=== PATIENT | male | born 1940 | race Caucasian/White ===

== ENCOUNTER → 2020-05-29 12:19 | Outpatient (CLI) | payer BC, SELFPAY ==
[2020-05-29 20:49] LABS: COVID19 - ORCAS (NP or Nasal) Negative (Negative)
== END ==
PROVIDERS: Family Provider Family Medicine; PCP Internal Medicine; Visit Provider Physician Assistant
DX: Z20.822 Contact with and (suspected) exposure to COVID-19 (principal)
CPT/HCPCS: U0003

== ENCOUNTER 2020-09-15 13:55 | Emergency (ER) | payer BC, SELFPAY ==
[2020-09-15] VITALS (7 sets, daily range): BP systolic 161–184; BP diastolic 81–92; PULSE 64–96; RESP 16; TEMP 36.4; O2SAT 83–99; BMI 20.8
[2020-09-15 14:21] LABS: Add Manual Diff / Slide Review NO; Basophils Absolute Auto 100 /uL (0-100); Basophils Percent Auto 3.1 % (0-2); Eosinophils Absolute Auto 0 /uL (0-450); Eosinophils Percent Auto 1.6 % (2-4); Hematocrit 39.4 % (41-53); Hemoglobin 13.3 g/dL (13.5-17.5); Lymphocytes Absolute Auto 900 /uL (1100-4500); Mean Corpuscular HGB Conc 33.9 % (30-36); Mean Corpuscular Hemoglobin 34.2 PG (26-34); Mean Corpuscular Volume 100.8 fL (80-100); Monocytes Absolute Auto 600 /uL (0-900); Monocytes Percent Auto 19.7 % (3-14); Neutrophils Absolute Auto 1300 /uL (1500-7000); Neutrophils Percent Auto 44.6 % (50-75); Platelet Count 204 X10^3/uL (150-400); Red Blood Cell Count 3.91 X10^6/uL (4.5-5.9); Red Cell Distribution Width 13.1 % (11.6-14.8); White Blood Cell Count 2.8 X10^3/uL (4.5-11.0)
[2020-09-15 14:36] LABS: Alanine Aminotransferase 15 IU/L (<50); Albumin 4.3 g/dL (3.5-5.0); Albumin Globulin Ratio 0.8 (1.0-2.8); Alkaline Phosphatase 77 U/L (38-126); Aspartate Aminotransferase 49 IU/L (17-59); BUN Creatinine Ratio 25.4 (6-22); Bilirubin Total 1.3 mg/dL (0.2-1.3); Blood Urea Nitrogen 15 mg/dL (9-20); Calcium 9.2 mg/dL (8.4-10.2); Carbon Dioxide 26 mmol/L (22-32); Chloride 102 mmol/L (98-107); Estimated Glomerular Filt Rate > 60.0 mL/min (>60); Globulin 5.2 g/dL (1.7-4.1); Glucose 103 mg/dL (80-110); Lipase 25 U/L (23-300); Sodium 135 mmol/L (137-145); Total Protein 9.5 g/dL (6.3-8.2)
[2020-09-15 14:37] LABS: HEMOLYSIS 262 (0-50); Potassium 5.8 mmol/L (3.4-5.1)
--- NOTE | 2020-09-15 15:11 | ED.ABDPAIN ---
HPI - Abdominal Pain General Chief Complaint: Abdominal Pain Stated Complaint: right side abd pain Time Seen by Provider: 09/15/20 13:57 Source: patient Mode of arrival: Ambulatory History of Present Illness HPI narrative: 79M former smoker with a history of HTN and multiple myeloma presents with and the chief complaint of at least a few days of pain in the RUQ. He denies any injury and states it is worse when he lays flat so he has had trouble sleeping. He denies other palliation or provocation. Specifically he has no trouble eating or drinking and no N/V/D. He denies any injury. He does state he recently had a surgery for an inguinal hernia and has been having trouble moving his bowels. He denies any dysuria, frequency or urgency. He had seen his primary care doctor and had a rib series x-ray which was unremarkable Related Data Home Medications Medication Instructions Recorded Confirmed acyclovir 400 mg tablet 400 mg PO BID 09/12/20 09/12/20 amlodipine 5 mg tablet 5 mg PO DAILY 09/12/20 09/12/20 aspirin 81 mg tablet,delayed 81 mg PO BID tab 09/12/20 09/12/20 release cholecalciferol (vitamin D3) 25 25 mcg PO DAILY 09/12/20 09/12/20 mcg (1,000 unit) capsule cyanocobalamin (vitamin B-12) 1,000 mcg IM QWEEK ml 09/12/20 09/12/20 1,000 mcg/mL injection solution daratumumab 20 mg/mL intravenous IV 09/12/20 09/12/20 solution (Darzalex) pomalidomide 2 mg capsule 2 mg PO DAILY 09/12/20 09/12/20 Previous Rx's Medication Instructions Recorded hydrocodone 5 mg-acetaminophen 325 1 tab PO Q6H PRN #20 tab 09/13/20 mg tablet Allergies Allergy/AdvReac Type Severity Reaction Status Date / Time No Known Drug Allergies Allergy Verified 09/12/20 16:09 Review of Systems Review of Systems Narrative: GENERAL: Denies chills, fatigue, malaise, fever, sweats. HEENT: Denies sinus pain, ear pain, sore throat, difficulty swallowing, dizziness. RESPIRATORY: Denies dyspnea, cough, wheezing, hemoptysis, sputum. CARDIOVASCULAR: see HPI GASTROINTESTINAL: Denies nausea, vomiting, abdominal pain, diarrhea, constipation, melena. : Denies dysuria, frequency, incontinence, hematuria, urinary retention. MUSCULOSKELETAL: denies weakness, joint pain, or bony pain SKIN: Denies rash, skin lesions, or other NEUROLOGIC: Denies weakness, headache, numbness, change in speech, confusion, seizures, incoordination. PSYCHIATRIC: No concerning psychosocial issues. 12 point review of systems is negative except for those stated above Patient History Social History Smoking Status: Former smoker Smoking Status: Former smoker Substance Use Type: does not use Exam Narrative Exam Narrative: GENERAL: [79] year old patient appears stated age. Well-developed patient, in mild distress. HEAD: Atraumatic. Normocephalic. EYES: Pupils equal round and reactive. Extraocular motions intact. No scleral icterus. No injection or drainage. ENT: Nose without bleeding, purulent drainage. Throat without erythema, tonsillar hypertrophy or exudate. Airway patent. NECK: Trachea midline. Non tender CARDIOVASCULAR: Regular rate and rhythm without murmurs, gallops, or rubs. Small, pinpoint location of pain on right side inferior ribs. No swelling, no erythema no rash, crepitance or subcutaneous emphysema noted. No pain once to slide and in fingers off of rib into abdomen RESPIRATORY: Clear to auscultation. Breath sounds equal bilaterally. No wheezes, rales, or rhonchi. GASTROINTESTINAL: Abdomen soft, non-tender, nondistended. EXTREMITIES: No edema or joint tenderness. BACK: Nontender without deformity or crepitance. No flank tenderness. NEURO: AOx3. SKIN: No rash or erythema of visible areas Initial Vital Signs Initial Vital Signs: Vital Signs Temperature 97.6 F 09/15/20 14:05 Pulse Rate 96 H 09/15/20 14:05 Respiratory Rate 16 09/15/20 14:05 Blood Pressure 169/81 H 09/15/20 14:05 Pulse Oximetry 98 09/15/20 14:05 Course Orders Ordered: Discontinued Medications Fentanyl (Fentanyl 100 Mcg/2 Ml Inj) 50 mcg IV NOW ONE Stop: 09/15/20 16:20 Last Admin: 09/15/20 16:28 Dose: 50 mcg Documented by: JAYA Vital Signs Vital signs: Vital Signs - 8 hr 09/15/20 14:05 09/15/20 16:03 09/15/20 16:29 Temperature 97.6 F Pulse Rate 96 H 64 66 Respiratory Rate 16 Blood Pressure 169/81 H Pulse Oximetry 98 99 98 09/15/20 16:30 Temperature Pulse Rate Respiratory Rate Blood Pressure 174/87 H Pulse Oximetry MDM - Abdominal Pain Lab Data Result diagrams: 09/15/20 14:14 09/15/20 14:14 Labs: Lab Results 09/15/20 09/15/20 Range/Units 14:14 14:14 WBC 2.8 L (4.5-11.0) X10^3/uL RBC 3.91 L (4.5-5.9) X10^6/uL Hgb 13.3 L (13.5-17.5) g/dL Hct 39.4 L (41-53) % MCV 100.8 H (80-100) fL MCH 34.2 H (26-34) PG MCHC 33.9 (30-36) % RDW 13.1 (11.6-14.8) % Plt Count 204 (150-400) X10^3/uL Neut % (Auto) 44.6 L (50-75) % Lymph % (Auto) 31.0 (25-40) % [place] % (Auto) 19.7 H (3-14) % Eos % (Auto) 1.6 L (2-4) % Baso % (Auto) 3.1 H (0-2) % Neut # (Auto) 1300 L (1258-7334) /uL Lymph # (Auto) 900 L (0811-1841) /uL [place] # (Auto) 600 (0-900) /uL Eos # (Auto) 0 (0-450) /uL Baso # (Auto) 100 (0-100) /uL Sodium 135 L (137-145) mmol/L Potassium 5.8 H (3.4-5.1) mmol/L Chloride 102 (98-107) mmol/L Carbon Dioxide 26 (22-32) mmol/L BUN 15 (9-20) mg/dL Creatinine 0.59 L (0.66-1.25) mg/dL Estimated GFR > 60.0 (>60) mL/min BUN/Creatinine Ratio 25.4 H (6-22) Glucose 103 (80-110) mg/dL Calcium 9.2 (8.4-10.2) mg/dL Total Bilirubin 1.3 (0.2-1.3) mg/dL AST 49 (17-59) IU/L ALT 15 (<50) IU/L Alkaline Phosphatase 77 (38-126) U/L Total Protein 9.5 H (6.3-8.2) g/dL Albumin 4.3 (3.5-5.0) g/dL Globulin 5.2 H (1.7-4.1) g/dL Albumin/Globulin Ratio 0.8 L (1.0-2.8) Lipase 25 (23-300) U/L Imaging Data CT scan - abdomen/pelvis: Radiologist's Impression: [address] [id number] Scan ReportSigned Patient: Aime [place] MMR#: [id number]: 2Acct:[id number]/Sex: 79 / MDate of Service: 09/15/20Loc: EDAccession Number: [id number] Procedure: CT abdomen pelvis w con Ordering Provider: Jose Luis Cole D.O. PROCEDURE: CT ABDOMEN PELVIS W CON INDICATIONS: R sided abdominal pain TECHNIQUE: After the administration of intravenous contrast, axial sections acquired from the lung bases to the pubic symphysis. Coronal and sagittal reformats were performed. For radiation dose reduction, the following was used: automated exposure control, adjustment of mA and/or kV according to patient size. COMPARISON: None. FINDINGS: Image quality: Excellent. Lung bases: Elevated left hemidiaphragm/eventration of the left hemidiaphragm. Minimal right basilar atelectasis. Heart: No significant findings. ABDOMEN: Liver: Unremarkable. Gallbladder: Unremarkable Biliary ducts: Unremarkable. Pancreas: Unremarkable. Spleen: Unremarkable. Adrenal Glands: Unremarkable. Kidneys and Ureters: Unremarkable. Stomach and Bowel: There is a large amount of colonic fecal debris. The colon is redundant. There is a large amount of fecal debris present in the right abdomen. Peritoneum: No abnormal intraperitoneal fluid. No free air. Ventral Wall: No hernias. Abdominal Nodes: No retroperitoneal or mesenteric adenopathy by size criteria. Vessels: Aorta and inferior vena cava are normal in size. PELVIS: Pelvic Organs: Unremarkable. Bladder: Unremarkable. Prostate is enlarged. Pelvic Nodes: No enlarged lymph nodes. Miscellaneous: Small fat containing left inguinal hernia. Bones: Scoliotic curvature. Old inferior endplate L2 compression. IMPRESSION: Redundant colon with large fecal load and large amount of fecal debris in the right abdomen. No evidence of acute abdominal process. Dictated by: Adan Casarez M.D. on 09/15/2020 at 16:55 Approved by: Adan Casarez M.D. on 09/15/2020 at 16:59 MDM Narrative Medical decision making narrative: Multiple diagnoses considered including liver, gallbladder and pancreas, however there is no reproducible pain of the abdomen, labs are reassuring and ultrasound has no significant findings. Rib fracture or pleural effusion considered but thought unlikely given lack of findings on imaging. Bowel obstruction or other abdominal findings considered but thought unlikely given such a benign abdominal exam and lack of findings on imaging. I did discuss the findings of large stool burden and possbility of it contributing, but that it wasn't clearly the diagnosis. Return precautions given and questions answered to their apparent satisfaction. Discharge Plan Departure Patient Disposition: Home Clinical Impression: Rib pain on right side Instructions: DI for Abdominal Pain-Adult Activity Restrictions/Additional Instructions: *You have been diagnosed with [ abdominal pain likely due to constipation ] *What to do: *Take over the counter medications as directed: 1. Metamucil - is a bulk forming laxative and adds fiber 2. Colace - softens your stool 3. Dulcolax suppository - stimulates your bowels *Follow up with your primary care provider in 2-3 days, call for appointment *Return to ER if you should have any new, worsening or concerning symptoms *Drink plenty of water and eat foods high in fiber *Stay as active as you can as this helps move your bowels as well Prescriptions: No Action hydrocodone-acetaminophen 5-325 mg tablet 1 tab PO Q6H PRN (Reason: pain, severe) Qty: 20 RF: 0 pomalidomide 2 mg capsule 2 mg PO DAILY RF: 0 acyclovir 400 mg tablet 400 mg PO BID RF: 0 cyanocobalamin (vitamin B-12) 1,000 mcg/mL solution 1,000 mcg IM QWEEK RF: 0 cholecalciferol (vitamin D3) 25 mcg (1,000 unit) capsule 25 mcg PO DAILY RF: 0 aspirin 81 mg tablet,delayed release (DR/EC) 81 mg PO BID RF: 0 amlodipine 5 mg tablet 5 mg PO DAILY RF: 0 Darzalex 20 mg/mL solution IV RF: 0 Referrals: Cecile Kinney MD [Primary Care Provider] -
--- NOTE | 2020-09-15 15:28 | DI.US.S_ITS ---
PROCEDURE: US ABDOMEN LIMITED INDICATIONS: RIGHT UPPER QUADRANT PAIN TECHNIQUE: Real-time focused scanning was performed of the abdomen, with image documentation. COMPARISON: None. FINDINGS: The liver measures 14.2 cm. There is a normal echotexture. Gallbladder is normal with no stones. No wall thickening or pericholecystic fluid. The bile duct measures 9.2 mm. The pancreas is atrophic and lobular. No mass identified. IMPRESSION: Dilated common bile duct with no gallstones or evidence of cholecystitis. This is nonspecific and could be related to patient age versus a common bile duct stone. Dictated by: Lázaro Arora M.D. on 09/15/2020 at 16:20 Approved by: Lázaro Arora M.D. on 09/15/2020 at 16:24
--- NOTE | 2020-09-15 16:20 | DI.CT.S_ITS ---
PROCEDURE: CT ABDOMEN PELVIS W CON INDICATIONS: R sided abdominal pain TECHNIQUE: After the administration of intravenous contrast, axial sections acquired from the lung bases to the pubic symphysis. Coronal and sagittal reformats were performed. For radiation dose reduction, the following was used: automated exposure control, adjustment of mA and/or kV according to patient size. COMPARISON: None. FINDINGS: Image quality: Excellent. Lung bases: Elevated left hemidiaphragm/eventration of the left hemidiaphragm. Minimal right basilar atelectasis. Heart: No significant findings. ABDOMEN: Liver: Unremarkable. Gallbladder: Unremarkable Biliary ducts: Unremarkable. Pancreas: Unremarkable. Spleen: Unremarkable. Adrenal Glands: Unremarkable. Kidneys and Ureters: Unremarkable. Stomach and Bowel: There is a large amount of colonic fecal debris. The colon is redundant. There is a large amount of fecal debris present in the right abdomen. Peritoneum: No abnormal intraperitoneal fluid. No free air. Ventral Wall: No hernias. Abdominal Nodes: No retroperitoneal or mesenteric adenopathy by size criteria. Vessels: Aorta and inferior vena cava are normal in size. PELVIS: Pelvic Organs: Unremarkable. Bladder: Unremarkable. Prostate is enlarged. Pelvic Nodes: No enlarged lymph nodes. Miscellaneous: Small fat containing left inguinal hernia. Bones: Scoliotic curvature. Old inferior endplate L2 compression. IMPRESSION: Redundant colon with large fecal load and large amount of fecal debris in the right abdomen. No evidence of acute abdominal process. Dictated by: Adan Casarez M.D. on 09/15/2020 at 16:55 Approved by: Adan Casarez M.D. on 09/15/2020 at 16:59
[2020-09-15] MEDS: fentaNYL 100 MCG/2 ML INJ 50 MCG IV (16:28)
== END 2020-09-15 17:24 | disposition home or self-care (01) ==
PROVIDERS: Emergency Provider Emergency Medicine; Family Provider Family Medicine; PCP Family Medicine
DX: R07.81 Pleurodynia (principal); R10.11 Right upper quadrant pain
CPT/HCPCS: 36415; 74177; 76705; 80053; 83690; 85025; 93005; 96374; 99284; J3010; Q9967

== ENCOUNTER → 2021-08-09 09:34 | Outpatient (CLI) | payer BC, SELFPAY ==
[2021-08-09 19:19] LABS: Hematocrit 33.7 % (41-53); Hemoglobin 11.2 g/dL (13.5-17.5); Mean Corpuscular HGB Conc 33.2 % (30-36); Mean Corpuscular Hemoglobin 30.6 PG (26-34); Mean Corpuscular Volume 92.3 fL (80-100); Platelet Count 161 X10^3/uL (150-400); Red Blood Cell Count 3.65 X10^6/uL (4.5-5.9)
[2021-08-09 19:21] LABS: Add Manual Diff / Slide Review YES
[2021-08-09 19:28] LABS: Alanine Aminotransferase 17 IU/L (<50); Albumin 3.7 g/dL (3.5-5.0); Alkaline Phosphatase 70 U/L (38-126); Aspartate Aminotransferase 33 IU/L (17-59); BUN Creatinine Ratio 26.2 (6-22); Bilirubin Total 0.8 mg/dL (0.2-1.3); Blood Urea Nitrogen 16 mg/dL (9-20); Calcium 8.9 mg/dL (8.4-10.2); Carbon Dioxide 31 mmol/L (22-32); Chloride 99 mmol/L (98-107); Estimated Glomerular Filt Rate > 60 mL/min (>60); Globulin 3.6 g/dL (1.7-4.1); Glucose 105 mg/dL (80-110); HEMOLYSIS 16 (0-50); Sodium 136 mmol/L (137-145); Total Protein 7.3 g/dL (6.3-8.2)
[2021-08-09 19:40] LABS: Anisocytosis 1+; Neutrophils Absolute Manual 960 /uL (3000-5900); Poikilocytosis 1+; Total Cells Counted 100
== END ==
PROVIDERS: Family Provider Family Medicine; PCP Internal Medicine Hematology & Oncology; Visit Provider Internal Medicine Hematology & Oncology
DX: C90.00 Multiple myeloma not having achieved remission (principal)
CPT/HCPCS: 80053; 85007; 85025

== ENCOUNTER → 2021-11-02 14:59 | Outpatient (CLI) | payer BC, SELFPAY | PROVIDERS: Family Provider Family Medicine; PCP Family Medicine; Referring Provider Physician Assistant; Visit Provider Physician Assistant | DX: C80.1 Malignant (primary) neoplasm, unspecified (principal) | CPT/HCPCS: 36415; 82378 ==

== ENCOUNTER → 2021-11-23 08:44 | Outpatient (CLI) | payer BC, SELFPAY ==
[2021-11-23 09:55] LABS: Hematocrit 28.5 % (41-53); Hemoglobin 9.7 g/dL (13.5-17.5); Mean Corpuscular HGB Conc 34.1 % (30-36); Mean Corpuscular Hemoglobin 35.7 PG (26-34); Mean Corpuscular Volume 104.7 fL (80-100); Platelet Count 86 X10^3/uL (150-400); Red Blood Cell Count 2.72 X10^6/uL (4.5-5.9)
[2021-11-23 10:09] LABS: Add Manual Diff / Slide Review YES; White Blood Cell Count 1.7 X10^3/uL (4.5-11.0)
[2021-11-23 10:30] LABS: Hypochromasia 1+; Macrocytosis 1+; Neutrophils Absolute Manual 1020 /uL (3000-5900); Total Cells Counted 50
== END ==
PROVIDERS: Family Provider Family Medicine; PCP Family Medicine; Referring Provider Physician Assistant; Visit Provider Physician Assistant
DX: C90.00 Multiple myeloma not having achieved remission (principal)
CPT/HCPCS: 36415; 85007; 85025

== ENCOUNTER 2021-12-09 13:57 | Observation (INO) | payer BC, SELFPAY ==
[2021-12-09] VITALS (14 sets, daily range): BP systolic 111–133; BP diastolic 60–76; PULSE 63–81; RESP 18–47; TEMP 37–37.7; O2SAT 91–100; BMI 17.8
--- NOTE | 2021-12-09 14:13 | DI.CT.S_ITS ---
PROCEDURE: CT CERVICAL SPINE WO CON INDICATIONS: fall with head injury TECHNIQUE: Noncontrast 3 mm thick sections acquired from the skull base to the T4 level. Sagittal and coronal reformats were then constructed. For radiation dose reduction, the following was used: automated exposure control, adjustment of mA and/or kV according to patient size. COMPARISON: [facility], CT, CT HEAD/BRAIN WO CON, 12/09/2021, 14:41. FINDINGS: Image quality: Fair. Bones: No fractures or dislocations. Moderate to severe degenerative change in the cervical spine at C5-C6 and C6-C7. Sclerotic focus at the left C1 transverse process. Visualized superior ribs are intact. T4 and T6 compression fractures. Soft tissues: Prevertebral soft tissues are normal in thickness. Carotid bulb atherosclerotic plaques. No paravertebral hematomas. No apical pneumothoraces. Subcentimeter thyroid nodules. IMPRESSION: No acute osseous abnormality in the cervical spine. 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 T4 and T6 compression fractures. Age indeterminate but appear chronic. Dictated by: Ruben Rosales M.D. on 12/09/2021 at 14:21 Approved by: Ruben Rosales M.D. on 12/09/2021 at 14:25
--- NOTE | 2021-12-09 14:13 | DI.CT.S_ITS ---
PROCEDURE: CT HEAD/BRAIN WO CON INDICATIONS: fall with head injury TECHNIQUE: Noncontrast 4.5 mm thick angled axial sections acquired from the foramen magnum to the vertex, with coronal and sagittal reformats. For radiation dose reduction, the following was used: automated exposure control, adjustment of mA and/or kV according to patient size. COMPARISON: None. FINDINGS: Image quality: Excellent. CSF spaces: Basal cisterns are patent. No extra-axial fluid collections. Large area of encephalomalacia at the left cerebral hemisphere and/or ex vacuole dilatation of the left lateral ventricle. 3rd and 4th ventricles are normal. Brain: No midline shift. No intracranial masses or hemorrhage. Periventricular hypodensity consistent with chronic microvascular ischemic change. Age-related parenchymal loss. Skull and face: Calvarium and visualized facial bones are intact, without suspicious lesions. Sinuses: Visualized sinuses and mastoids are clear. IMPRESSION: 1. No acute intracranial hemorrhage. 2. Large area of encephalomalacia at the left cerebral hemisphere and/or ex vacuole dilatation of the left lateral ventricle. 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 Dictated by: Ruben Rosales M.D. on 12/09/2021 at 14:15 Approved by: Ruben Rosales M.D. on 12/09/2021 at 14:19
--- NOTE | 2021-12-09 14:27 | DI.RAD.S_ITS ---
PROCEDURE: XR SHOULDER RT MIN 2V INDICATIONS: fall TECHNIQUE: 3 views of the shoulder were acquired. COMPARISON: [facility] ([place]), CR, XR RIBS RT MIN 3V W CXR 1V, 09/12/2020, 16:33. [facility], CR, SHOULDER MINIMUM 2 VIEW LEFT, 08/05/2010, 19:17. FINDINGS: Bones: Distal clavicle fracture. Mild displacement. The acromioclavicular joint interval does not appear widened. There are several right upper rib fractures which appear chronic. Fractures were seen on radiograph 09/12/2020. No dislocation of the glenohumeral joint. There is moderate degenerative change at the GH joint. Soft tissues: No suspicious soft tissue calcifications. IMPRESSION: Right distal clavicle fracture. Likely acute. Right sided rib fractures. Favor chronic etiology. Dictated by: Ruben Rosales M.D. on 12/09/2021 at 14:31 Approved by: Ruben Rosales M.D. on 12/09/2021 at 14:34
--- NOTE | 2021-12-09 14:52 | ED.SOB ---
HPI - SOB/Dyspnea <Jose Luis Cole, DO - Last Filed: 12/10/21 06:16> General Chief Complaint: Trauma Stated Complaint: fell onto steps hit head blood thinners Time Seen by Provider: 12/09/21 14:13 Source: patient and family Mode of arrival: Wheelchair History of Present Illness HPI Narrative: 81-year-old male former smoker with history of DVTs on Xarelto presents with family in the chief complaint of a mechanical fall in which he tripped down 1 stair landing on his right side. He did strike his head but did not have any loss of consciousness. He has no nausea, vomiting, blurred vision or trouble with speech. He denies any obvious midline neck pain. He has no shortness of breath or cough. As stated he denies nausea, vomiting or abdominal pain. He does have significant right shoulder and right lateral rib pain. Related Data Home Medications Medication Instructions Recorded Confirmed acyclovir 400 mg tablet 400 mg PO BID 09/12/20 12/09/21 cyanocobalamin (vitamin B-12) 1,000 mcg IM QMONTH 09/12/20 12/09/21 1,000 mcg/mL injection solution acetaminophen 500 mg tablet 1,000 mg PO BID 12/09/21 12/09/21 cetirizine 10 mg tablet (Zyrtec) 10 mg PO BEDTIME 12/09/21 12/09/21 cyclophosphamide 50 mg capsule 500 mg PO WEEKLY 12/09/21 12/09/21 furosemide 20 mg tablet 20 mg PO DAILY 12/09/21 12/09/21 ipratropium bromide 17 34 mcg inhalation Q4HR PRN 12/09/21 12/09/21 mcg/actuation HFA aerosol inhaler Shortness Of Breath Or Wheezing (Atrovent HFA) lenalidomide 15 mg capsule 15 mg PO DAILY 12/09/21 12/09/21 (Revlimid) metoprolol succinate 25 mg 25 mg PO DAILY 12/09/21 12/09/21 tablet,extended release 24 hr mirabegron 25 mg tablet,extended 25 mg PO DAILY 12/09/21 12/09/21 release 24 hr (Myrbetriq) morphine 30 mg tablet,extended 30 mg PO QAM 12/09/21 12/09/21 release morphine 30 mg tablet,extended 60 mg PO BEDTIME 12/09/21 12/09/21 release potassium chloride 10 mEq 20 meq PO DAILY 12/09/21 12/09/21 tablet,extended release(part/cryst) rivaroxaban 20 mg tablet (Xarelto) 20 mg PO BEDTIME 12/09/21 12/09/21 sennosides 8.6 mg tablet (senna) 25.8 mg PO BID 12/09/21 12/09/21 tamsulosin 0.4 mg capsule 0.4 mg PO DAILY 12/09/21 12/09/21 Previous Rx's Medication Instructions Recorded oxycodone 10 mg tablet 10 mg PO Q3H PRN Pain, Severe 12/10/21 (5-10) #12 tabs Allergies Allergy/AdvReac Type Severity Reaction Status Date / Time No Known Drug Allergies Allergy Verified 09/12/20 16:09 Review of Systems <Jose Luis Cole DO - Last Filed: 12/10/21 06:16> Review of Systems Narrative: GENERAL: Denies chills, fatigue, malaise, fever, sweats. HEENT: Denies sinus pain, ear pain, sore throat, difficulty swallowing, dizziness. RESPIRATORY: Denies dyspnea, cough, wheezing, hemoptysis, sputum. CARDIOVASCULAR: Denies chest pain, palpitations, orthopnea, edema, GASTROINTESTINAL: Denies nausea, vomiting, abdominal pain, diarrhea, constipation, melena. : Denies dysuria, frequency, incontinence, hematuria, urinary retention. MUSCULOSKELETAL: See HPI SKIN: Denies rash, skin lesions, or other NEUROLOGIC: Denies weakness, headache, numbness, change in speech, confusion, seizures, incoordination. PSYCHIATRIC: No concerning psychosocial issues. 12 point review of systems is negative except for those stated above Patient History <Jose Luis Cole DO - Last Filed: 12/10/21 06:16> Medical History (Updated 12/10/21 @ 00:23 by FREEDOM Boateng) BPH (benign prostatic hyperplasia) Chronic anticoagulation Heart failure with preserved ejection fraction History of DVT (deep vein thrombosis) History of pulmonary embolus (PE) Osteoporosis Overactive bladder Palliative care patient Paralysis, diaphragm Unstable gait Weakness of right side of body Surgical History (Updated 12/10/21 @ 00:10 by FREEDOM Boateng) History of back surgery History of hernia repair Family History Mother Cancer Father Blood disorder Social History household members: spouse Smoking Status: Former smoker alcohol intake: never Smoking Status: Former smoker Substance Use Type: does not use Exam <Jose Luis Cole DO - Last Filed: 12/10/21 06:16> Narrative Exam Narrative: GENERAL: [81] year old patient appears stated age. Well-developed patient, in mild distress. GCS 15 HEAD: Superficial abrasion right cheek, no underlying pain, no bleeding. No need for sutures. EYES: Pupils equal round and reactive. Extraocular motions intact. No scleral icterus. No injection or drainage. ENT: Nose without bleeding, purulent drainage. Throat without erythema, tonsillar hypertrophy or exudate. Airway patent. NECK: Trachea midline. Non tender CARDIOVASCULAR: Regular rate and rhythm without murmurs, gallops, or rubs. Lateral rib pain RESPIRATORY: Clear to auscultation. Breath sounds equal bilaterally. No wheezes, rales, or rhonchi. GASTROINTESTINAL: Abdomen soft, non-tender, nondistended. EXTREMITIES: Right shoulder pain without obvious deformity, painful on palpation and range of motion. No humerus, elbow or wrist pain, closed, isolated and neurovascularly intact BACK: Nontender without deformity or crepitance. No flank tenderness. NEURO: AOx3. SKIN: No rash or erythema of visible areas Initial Vital Signs Initial Vital Signs: Vital Signs Temperature 98.6 F 12/09/21 14:18 Pulse Rate 67 12/09/21 14:18 Respiratory Rate 18 12/09/21 14:18 Blood Pressure 112/68 12/09/21 14:18 Pulse Oximetry 97 12/09/21 14:18 Oxygen Delivery Method 12/09/21 14:18 <Denia Ruiz DO - Last Filed: 12/12/21 10:10> Initial Vital Signs Initial Vital Signs: Vital Signs Temperature 98.6 F 12/09/21 14:18 Pulse Rate 67 12/09/21 14:18 Respiratory Rate 18 12/09/21 14:18 Blood Pressure 112/68 12/09/21 14:18 Pulse Oximetry 97 12/09/21 14:18 Oxygen Delivery Method 12/09/21 14:18 Course <Jose Luis Cole DO - Last Filed: 12/10/21 06:16> Orders Ordered: Discontinued Medications Acetaminophen (Acetaminophen 325 Mg Tablet) 650 mg PO Q6H PRN PRN Reason: Fever/Mild Pain (1-10) Last Admin: 12/10/21 11:54 Dose: 650 mg Documented By: Admin: 12/09/21 21:31 Dose: 650 mg Documented By: Acyclovir (Acyclovir 400 Mg Tablet) 400 mg PO BID [facility] Last Admin: 12/10/21 08:23 Dose: 400 mg Documented By: ASHLEY Amlodipine Besylate (Amlodipine 5 Mg Tablet) 5 mg PO DAILY [facility] Last Admin: 12/10/21 08:57 Dose: Not Given Documented By: ASHLEY Bacitracin (Bacitracin Oint 0.9 Gm Pckt) 1 applic TOP NOW ONE Stop: 12/09/21 15:37 Last Admin: 12/09/21 16:06 Dose: 1 applic Documented By: WILL Diclofenac Sodium (Diclofenac 1% Gel 100 Gm) 1 applic TOP QID PRN PRN Reason: Pain, Mild (1-10) Furosemide (Furosemide 20 Mg Tablet) 20 mg PO DAILY [facility] Last Admin: 12/10/21 08:23 Dose: 20 mg Documented By: ASHLEY Sodium Chloride (Normal Saline 0.9%) 1,000 mls @ 60 mls/hr IV CONT [facility] Last Admin: 12/09/21 21:11 Dose: 60 mls/hr Documented By: Ipratropium [place] (Ipratropium 0.5 Mg/2.5 Ml Neb) 0.5 mg INH Q4H PRN PRN Reason: Shortness Of Breath Or Wheezing Lidocaine (Lidocaine Patch 1 Each Adh..Patch) 1 each TOP DAILY PRN PRN Reason: Pain, Moderate (1-10) Last Admin: 12/10/21 01:02 Dose: 1 each Documented By: AM Metoprolol Succinate (Metoprolol Er 25 Mg Tablet) 25 mg PO DAILY [facility] Last Admin: 12/10/21 08:23 Dose: 25 mg Documented By: ASHLEY Morphine Sulfate (Morphine Er 30 Mg Tablet) 60 mg PO BEDTIME [facility] Morphine Sulfate (Morphine Er 30 Mg Tablet) 30 mg PO DAILY [facility] Last Admin: 12/10/21 08:22 Dose: 30 mg Documented By: ASHLEY Naloxone HCl (Naloxone 0.4 Mg/Ml Vial) 0.2 mg IV Q2MIN PRN PRN Reason: Opiate Reversal Non-Formulary Medication (Pomalidomide) 2 mg PO DAILY [facility] Cyclophosphamide 50 (Mg Capsule) 500 mg PO Mo@0900 [facility] Last Admin: 12/10/21 08:27 Dose: 500 mg Documented By: ASHLEY Lenalidomide [ Revlimid] 15 Mg Capsule 15 mg PO DAILY [facility] Last Admin: 12/10/21 08:26 Dose: 15 mg Documented By: ASHLEY Oxycodone HCl (Oxycodone Ir 10 Mg Tablet) 10 mg PO Q3H PRN PRN Reason: Pain, Severe (5-10) Last Admin: 12/10/21 16:12 Dose: 10 mg Documented By: Admin: 12/10/21 11:48 Dose: 10 mg Documented By: Admin: 12/10/21 08:22 Dose: 10 mg Documented By: Admin: 12/10/21 04:26 Dose: 10 mg Documented By: Admin: 12/10/21 01:01 Dose: 10 mg Documented By: AM Potassium Chloride (Potassium Chloride 20 Meq Tab) 20 meq PO DAILY [facility] Last Admin: 12/10/21 08:23 Dose: 20 meq Documented By: ASHLEY Rivaroxaban (Rivaroxaban 10 Mg Tablet) 20 mg PO BEDTIME [facility] Sennosides (Sennosides 8.6 Mg Tablet) 17.2 mg PO BEDTIME [facility] Last Admin: 12/09/21 22:09 Dose: Not Given Documented By: AM Tamsulosin HCl (Tamsulosin 0.4 Mg Capsule) 0.4 mg PO DAILY [facility] Last Admin: 12/10/21 08:23 Dose: 0.4 mg Documented By: ASHLEY Consultations Consultation #1: discussed with solar applications development engineer trauma (Deb) happy to be involved in consultation Consultation #2: hospitalist happy to accept Vital Signs Vital signs: Vital Signs - 8 hr 12/09/21 14:18 12/09/21 15:44 12/09/21 16:00 Temperature 98.6 F Pulse Rate 67 67 66 Respiratory Rate 18 36 H Blood Pressure 112/68 Pulse Oximetry 97 91 91 Oxygen Delivery Method Room Air 12/09/21 16:01 12/09/21 16:01 12/09/21 16:30 Temperature Pulse Rate 63 63 Respiratory Rate 32 H Blood Pressure 124/60 Pulse Oximetry 97 Oxygen Delivery Method 12/09/21 16:56 12/09/21 16:56 12/09/21 17:00 Temperature Pulse Rate 63 Respiratory Rate 22 Blood Pressure 115/60 111/65 Pulse Oximetry 99 Oxygen Delivery Method 12/09/21 17:00 12/09/21 17:30 12/09/21 17:30 Temperature Pulse Rate 63 65 Respiratory Rate 20 28 H Blood Pressure 130/63 Pulse Oximetry 100 99 Oxygen Delivery Method 12/09/21 16:00 12/09/21 19:37 12/09/21 19:38 Temperature Pulse Rate 73 Respiratory Rate 47 H Blood Pressure 133/76 Pulse Oximetry 98 Oxygen Delivery Method Room Air 12/09/21 19:38 12/09/21 20:00 12/09/21 20:00 Temperature Pulse Rate 81 74 Respiratory Rate 42 H 36 H Blood Pressure 130/70 Pulse Oximetry 97 98 Oxygen Delivery Method <Denia Ruiz, DO - Last Filed: 12/12/21 10:10> Orders Ordered: Discontinued Medications Acetaminophen (Acetaminophen 325 Mg Tablet) 650 mg PO Q6H PRN PRN Reason: Fever/Mild Pain (1-10) Last Admin: 12/10/21 11:54 Dose: 650 mg Documented By: Admin: 12/09/21 21:31 Dose: 650 mg Documented By: Acyclovir (Acyclovir 400 Mg Tablet) 400 mg PO BID [facility] Last Admin: 12/10/21 08:23 Dose: 400 mg Documented By: ASHLEY Amlodipine Besylate (Amlodipine 5 Mg Tablet) 5 mg PO DAILY [facility] Last Admin: 12/10/21 08:57 Dose: Not Given Documented By: ASHLEY Bacitracin (Bacitracin Oint 0.9 Gm [facility]) 1 applic TOP NOW ONE Stop: 12/09/21 15:37 Last Admin: 12/09/21 16:06 Dose: 1 applic Documented By: SB Diclofenac Sodium (Diclofenac 1% Gel 100 Gm) 1 applic TOP QID PRN PRN Reason: Pain, Mild (1-10) Furosemide (Furosemide 20 Mg Tablet) 20 mg PO DAILY [facility] Last Admin: 12/10/21 08:23 Dose: 20 mg Documented By: ASHLEY Sodium Chloride (Normal Saline 0.9%) 1,000 mls @ 60 mls/hr IV CONT [facility] Last Admin: 12/09/21 21:11 Dose: 60 mls/hr Documented By: Ipratropium [place] (Ipratropium 0.5 Mg/2.5 Ml Neb) 0.5 mg INH Q4H PRN PRN Reason: Shortness Of Breath Or Wheezing Lidocaine (Lidocaine Patch 1 Each Adh..Patch) 1 each TOP DAILY PRN PRN Reason: Pain, Moderate (1-10) Last Admin: 12/10/21 01:02 Dose: 1 each Documented By: AM Metoprolol Succinate (Metoprolol Er 25 Mg Tablet) 25 mg PO DAILY [facility] Last Admin: 12/10/21 08:23 Dose: 25 mg Documented By: ASHLEY Morphine Sulfate (Morphine Er 30 Mg Tablet) 60 mg PO BEDTIME [facility] Morphine Sulfate (Morphine Er 30 Mg Tablet) 30 mg PO DAILY [facility] Last Admin: 12/10/21 08:22 Dose: 30 mg Documented By: ASHLEY Naloxone HCl (Naloxone 0.4 Mg/Ml Vial) 0.2 mg IV Q2MIN PRN PRN Reason: Opiate Reversal Non-Formulary Medication (Pomalidomide) 2 mg PO DAILY [facility] Cyclophosphamide 50 (Mg Capsule) 500 mg PO Mo@0900 [facility] Last Admin: 12/10/21 08:27 Dose: 500 mg Documented By: ASHLEY Lenalidomide [ Revlimid] 15 Mg Capsule 15 mg PO DAILY [facility] Last Admin: 12/10/21 08:26 Dose: 15 mg Documented By: ASHLEY Oxycodone HCl (Oxycodone Ir 10 Mg Tablet) 10 mg PO Q3H PRN PRN Reason: Pain, Severe (5-10) Last Admin: 12/10/21 16:12 Dose: 10 mg Documented By: Admin: 12/10/21 11:48 Dose: 10 mg Documented By: Admin: 12/10/21 08:22 Dose: 10 mg Documented By: Admin: 12/10/21 04:26 Dose: 10 mg Documented By: Admin: 12/10/21 01:01 Dose: 10 mg Documented By: JUNIE Potassium Chloride (Potassium Chloride 20 Meq Tab) 20 meq PO DAILY [facility] Last Admin: 12/10/21 08:23 Dose: 20 meq Documented By: ASHLEY Rivaroxaban (Rivaroxaban 10 Mg Tablet) 20 mg PO BEDTIME [facility] Sennosides (Sennosides 8.6 Mg Tablet) 17.2 mg PO BEDTIME [facility] Last Admin: 12/09/21 22:09 Dose: Not Given Documented By: JUNIE Tamsulosin HCl (Tamsulosin 0.4 Mg Capsule) 0.4 mg PO DAILY [facility] Last Admin: 12/10/21 08:23 Dose: 0.4 mg Documented By: ASHLEY Vital Signs Vital signs: Vital Signs - 8 hr 12/09/21 14:18 12/09/21 15:44 12/09/21 16:00 Temperature 98.6 F Pulse Rate 67 67 66 Respiratory Rate 18 36 H Blood Pressure 112/68 Pulse Oximetry 97 91 91 Oxygen Delivery Method Room Air 12/09/21 16:01 12/09/21 16:01 12/09/21 16:30 Temperature Pulse Rate 63 63 Respiratory Rate 32 H Blood Pressure 124/60 Pulse Oximetry 97 Oxygen Delivery Method 12/09/21 16:56 12/09/21 16:56 12/09/21 17:00 Temperature Pulse Rate 63 Respiratory Rate 22 Blood Pressure 115/60 111/65 Pulse Oximetry 99 Oxygen Delivery Method 12/09/21 17:00 12/09/21 17:30 12/09/21 17:30 Temperature Pulse Rate 63 65 Respiratory Rate 20 28 H Blood Pressure 130/63 Pulse Oximetry 100 99 Oxygen Delivery Method 12/09/21 16:00 12/09/21 19:37 12/09/21 19:38 Temperature Pulse Rate 73 Respiratory Rate 47 H Blood Pressure 133/76 Pulse Oximetry 98 Oxygen Delivery Method Room Air 12/09/21 19:38 12/09/21 20:00 12/09/21 20:00 Temperature Pulse Rate 81 74 Respiratory Rate 42 H 36 H Blood Pressure 130/70 Pulse Oximetry 97 98 Oxygen Delivery Method MDM - SOB/Dyspnea <Jose Luis Cole, - Last Filed: 12/10/21 06:16> Lab Data Result diagrams: 12/10/21 05:12 12/10/21 05:12 Labs: Lab Results 12/09/21 12/09/21 12/09/21 Range/Units 16:50 16:50 16:50 WBC 3.6 L (4.5-11.0) X10^3/uL RBC 2.89 L (4.5-5.9) X10^6/uL Hgb 10.4 L (13.5-17.5) g/dL Hct 30.4 L (41-53) % MCV 105.1 H (80-100) fL MCH 35.9 H (26-34) PG MCHC 34.1 (30-36) % RDW 17.3 H (11.6-14.8) % Plt Count 88 L (150-400) X10^3/uL Neut % (Auto) 77.0 H (50-75) % Lymph % (Auto) 6.3 L (25-40) % [place] % (Auto) 14.4 H (3-14) % Eos % (Auto) 0.9 L (2-4) % Baso % (Auto) 1.4 (0-2) % Neut # (Auto) 2700 (0670-4076) /uL Lymph # (Auto) 200 L (0762-9078) /uL [place] # (Auto) 500 (0-900) /uL Eos # (Auto) 0 (0-450) /uL Baso # (Auto) 0 (0-100) /uL PT 16.4 H (10.1-12.7) SECONDS INR 1.4 H (0.9-1.3) Sodium 136 L (137-145) mmol/L Potassium 3.7 (3.4-5.1) mmol/L Chloride 98 (98-107) mmol/L Carbon Dioxide 28 (22-32) mmol/L BUN 21 H (9-20) mg/dL Creatinine 0.65 L (0.66-1.25) mg/dL Estimated GFR > 60 (>60) mL/min BUN/Creatinine Ratio 32.3 H (6-22) Glucose 90 (80-110) mg/dL Calcium 8.5 (8.4-10.2) mg/dL Magnesium (1.6-2.3) mg/dL Total Bilirubin 0.7 (0.2-1.3) mg/dL AST 30 (17-59) IU/L ALT 33 (<50) IU/L Alkaline Phosphatase 112 (38-126) U/L Total Creatine Kinase (55-170) U/L CK-MB (CK-2) CK-MB (CK-2) Rel Index Troponin I (0.01-0.034) ng/mL NT-Pro-B Natriuret Pep (<450) pg/mL Total Protein 6.1 L (6.3-8.2) g/dL Albumin 3.8 (3.5-5.0) g/dL Globulin 2.3 (1.7-4.1) g/dL Albumin/Globulin Ratio 1.7 (1.0-2.8) Urine RBC (0-5/HPF) Urine WBC (0-5/HPF) Urine Bacteria (None) Hyaline Casts (None) Blood Type Antibody Screen 12/09/21 12/09/21 12/09/21 Range/Units 16:50 16:50 16:50 WBC (4.5-11.0) X10^3/uL RBC (4.5-5.9) X10^6/uL Hgb (13.5-17.5) g/dL Hct (41-53) % MCV (80-100) fL MCH (26-34) PG MCHC (30-36) % RDW (11.6-14.8) % Plt Count (150-400) X10^3/uL Neut % (Auto) (50-75) % Lymph % (Auto) (25-40) % [place] % (Auto) (3-14) % Eos % (Auto) (2-4) % Baso % (Auto) (0-2) % Neut # (Auto) (5035-2627) /uL Lymph # (Auto) (2861-7844) /uL [place] # (Auto) (0-900) /uL Eos # (Auto) (0-450) /uL Baso # (Auto) (0-100) /uL PT (10.1-12.7) SECONDS INR (0.9-1.3) Sodium (137-145) mmol/L Potassium (3.4-5.1) mmol/L Chloride (98-107) mmol/L Carbon Dioxide (22-32) mmol/L BUN (9-20) mg/dL Creatinine (0.66-1.25) mg/dL Estimated GFR (>60) mL/min BUN/Creatinine Ratio (6-22) Glucose (80-110) mg/dL Calcium (8.4-10.2) mg/dL Magnesium 1.9 (1.6-2.3) mg/dL Total Bilirubin (0.2-1.3) mg/dL AST (17-59) IU/L ALT (<50) IU/L Alkaline Phosphatase (38-126) U/L Total Creatine Kinase 82 (55-170) U/L CK-MB (CK-2) TNP CK-MB (CK-2) Rel Index TNP Troponin I 0.015 (0.01-0.034) ng/mL NT-Pro-B Natriuret Pep 592 H (<450) pg/mL Total Protein (6.3-8.2) g/dL Albumin (3.5-5.0) g/dL Globulin (1.7-4.1) g/dL Albumin/Globulin Ratio (1.0-2.8) Urine RBC (0-5/HPF) Urine WBC (0-5/HPF) Urine Bacteria (None) Hyaline Casts (None) Blood Type O Positive Antibody Screen Negative 12/09/21 Range/Units 17:06 WBC (4.5-11.0) X10^3/uL RBC (4.5-5.9) X10^6/uL Hgb (13.5-17.5) g/dL Hct (41-53) % MCV (80-100) fL MCH (26-34) PG MCHC (30-36) % RDW (11.6-14.8) % Plt Count (150-400) X10^3/uL Neut % (Auto) (50-75) % Lymph % (Auto) (25-40) % [place] % (Auto) (3-14) % Eos % (Auto) (2-4) % Baso % (Auto) (0-2) % Neut # (Auto) (8390-3965) /uL Lymph # (Auto) (9051-9583) /uL [place] # (Auto) (0-900) /uL Eos # (Auto) (0-450) /uL Baso # (Auto) (0-100) /uL PT (10.1-12.7) SECONDS INR (0.9-1.3) Sodium (137-145) mmol/L Potassium (3.4-5.1) mmol/L Chloride (98-107) mmol/L Carbon Dioxide (22-32) mmol/L BUN (9-20) mg/dL Creatinine (0.66-1.25) mg/dL Estimated GFR (>60) mL/min BUN/Creatinine Ratio (6-22) Glucose (80-110) mg/dL Calcium (8.4-10.2) mg/dL Magnesium (1.6-2.3) mg/dL Total Bilirubin (0.2-1.3) mg/dL AST (17-59) IU/L ALT (<50) IU/L Alkaline Phosphatase (38-126) U/L Total Creatine Kinase (55-170) U/L CK-MB (CK-2) CK-MB (CK-2) Rel Index Troponin I (0.01-0.034) ng/mL NT-Pro-B Natriuret Pep (<450) pg/mL Total Protein (6.3-8.2) g/dL Albumin (3.5-5.0) g/dL Globulin (1.7-4.1) g/dL Albumin/Globulin Ratio (1.0-2.8) Urine RBC None seen (0-5/HPF) Urine WBC None seen (0-5/HPF) Urine Bacteria None seen (None) Hyaline Casts 1-5/lpf (None) Blood Type Antibody Screen Urine Dip Bedside Urine Glucose Negative Bedside Urine Bilirubin - Negative Bedside Urine Ketone + 15 Urine Specific Josephine 1.025 Bedside Urine Occult Blood - Negative Bedside Urine pH 6.0 Bedside Urine Protein +/- 15 Bedside Urine Urobilinogen - Negative Bedside Urine Leukocytes - Negative Esterase Imaging Data CT scan - head: Radiologist's Impression: [place] [address] CT Scan Report Signed Patient: Aime Cuba MR#: [id number] : 1940 Acct:[id number] Age/Sex: 81 / M Date of Service: 12/09/21 Loc: ED Accession Number: [id number] ?? Procedure: CT head/brain wo con Ordering Provider: Jose Luis Cole D.O. PROCEDURE:? CT HEAD/BRAIN WO CON ? INDICATIONS:? fall with head injury ? TECHNIQUE:? Noncontrast 4.5 mm thick angled axial sections acquired from the foramen magnum to the vertex, with coronal and sagittal reformats.? For radiation dose reduction, the following was used:? automated exposure control, adjustment of mA and/or kV according to patient size.? ? COMPARISON:? None. ? FINDINGS:? Image quality:? Excellent.? ? CSF spaces:? Basal cisterns are patent.? No extra-axial fluid collections.? Large area of encephalomalacia at the left cerebral hemisphere and/or ex vacuole dilatation of the left lateral ventricle.? 3rd and 4th ventricles are normal.? ? Brain:? No midline shift.? No intracranial masses or hemorrhage.? Periventricular hypodensity consistent with chronic microvascular ischemic change. Age-related parenchymal loss. ? Skull and face:? Calvarium and visualized facial bones are intact, without suspicious lesions.? ? Sinuses:? Visualized sinuses and mastoids are clear.? ? IMPRESSION:? 1. No acute intracranial hemorrhage. ? 2. Large area of encephalomalacia at the left cerebral hemisphere and/or ex vacuole dilatation of the left lateral ventricle.? 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 ? ? Dictated by: Ruben Rosales M.D. on 12/09/2021 at 14:15 ? ? Approved by: Ruben Rosales M.D. on 12/09/2021 at 14:19 ? CT - cervical spine: Radiologist's Impression: [place] [address] CT Scan Report Signed Patient: Aime Cuba MR#: [id number] : 1940 Acct:[id number] Age/Sex: 81 / M Date of Service: 12/09/21 Loc: ED Accession Number: [id number] ?? Procedure: CT cervical spine wo con Ordering Provider: Jose Luis Cole D.O. PROCEDURE:? CT CERVICAL SPINE WO CON ? INDICATIONS:? fall with head injury ? TECHNIQUE:? Noncontrast 3 mm thick sections acquired from the skull base to the T4 level.? Sagittal and coronal reformats were then constructed.? For radiation dose reduction, the following was used:? automated exposure control, adjustment of mA and/or kV according to patient size.? ? COMPARISON:? [facility], CT, CT HEAD/BRAIN WO CON, 12/09/2021, 14:41. ? FINDINGS:? Image quality:? Fair.? ? Bones:? No fractures or dislocations.? Moderate to severe degenerative change in the cervical spine at C5-C6 and C6-C7.? Sclerotic focus at the left C1 transverse process.? Visualized superior ribs are intact.? T4 and T6 compression fractures. ? Soft tissues:? Prevertebral soft tissues are normal in thickness.? Carotid bulb atherosclerotic plaques.? No paravertebral hematomas.? No apical pneumothoraces.? Subcentimeter thyroid nodules.? ? ? IMPRESSION:? No acute osseous abnormality in the cervical spine. 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 ? T4 and T6 compression fractures.? Age indeterminate but appear chronic. ? ? Dictated by: Ruben Rosales M.D. on 12/09/2021 at 14:21 ? ? Approved by: Ruben Rosales M.D. on 12/09/2021 at 14:25 ? Extremity x-ray #1: Radiologist's Impression: ? Chart Viewer Diagnostics Subcategory All Activity ??:?? All Time ??:?? All Subcategories Filter Laboratory Imaging Microbiology Pathology Blood Bank Tests Cardiovascular Other Specialty DATE TYPE STATUS REF RANGE/AUTHOR Hx Today 15:14 Chest X-Ray ? Today 14:27 Shoulder X-Ray Signed Ruben Rosales Today 14:[address] Signed Ruben Rosales Today 14:[address] Signed Ruben Rosales 09/15/20 16:20 Abdomen/Pelvis CT Signed Adan Casarez 09/15/20 15:28 Abdomen Ultrasound Signed Lázaro Arora 09/12/20 16:22 Ribs X-Ray Signed oMr Hawk John M ED 81, M?1940 MRN#? [id number] REG ER,?Main ED??R01?? 53.07kg ? Trauma Acc#? [id number] Resus Status Not Ordered No Hx Avail Special Indicators No Data to Display Home Meds Not Confirmed Prescription Monitoring Program Total 20 MME/Day Unconfirmed MEDICATIONS (INSTRUCTIONS) LAST TAKEN Active ??acyclovir 400 mg tablet ??400 mgPOBID ??amlodipine 5 mg tablet ??5 mgPODAILY ??aspirin 81 mg tablet,delayed release ??81 mgPOBID ??cholecalciferol (vitamin D3) 25 mcg (1,000 unit) capsule ??25 mcgPODAILY ??cyanocobalamin (vitamin B-12) 1,000 mcg/mL injection solution ??1,000 mcgIMQWEEK ??daratumumab 20 mg/mL intravenous solution ??IV ??hydrocodone 5 mg-acetaminophen 325 mg tablet ??1 [id number], severe#20 tabs 20 MME/Day ??pomalidomide 2 mg capsule ??2 mgPODAILY Allergies No Known Drug Allergies Problems ? ONSET Hordeolum externum (stye) Personal history of multiple myeloma Rib pain on right side Vital Signs Today 14:18 BP 112/68? Pulse 67? Resp 18? Temp 98.6 F? O2 Sat 97? Delivery Room Air? Diagnostics Reports Aime [place]??81??M??1940 ? Allergy/Adv: No Known Drug Allergies Close Chest X-Ray 12/09/21 Shoulder X-Ray (Signed) Call,Ruben - 12/09/[address] (Signed) Call,Ruben - 12/09/[address] (Signed) Call,Ruben - 12/09/21 Abdomen/Pelvis CT (Signed) HermelindoAdan - 09/15/20 Abdomen Ultrasound (Signed) Lázaro Arora - 09/15/20 Ribs X-Ray (Signed) Mor Hawk - 09/12/20 [place] [address] XRay Report Signed Patient: Aime Cuba MR#: [id number] : 1940 Acct:[id number] Age/Sex: 81 / M Date of Service: 12/09/21 Loc: Accession Number: [id number] ?? Procedure: XR shoulder RT min 2V Ordering Provider: Jose Luis Cole D.O. PROCEDURE:? XR SHOULDER RT MIN 2V ? INDICATIONS:? fall ? TECHNIQUE:? 3 views of the shoulder were acquired.? ? COMPARISON:? [facility] ([place]), CR, XR RIBS RT MIN 3V W CXR 1V, 09/12/2020, 16:33.? [facility], CR, SHOULDER MINIMUM 2 VIEW LEFT, 08/05/2010, 19:17. ? FINDINGS:? ? Bones:? Distal clavicle fracture.? Mild displacement.? The acromioclavicular joint interval does not appear widened.? There are several right upper rib fractures which appear chronic.? Fractures were seen on radiograph 09/12/2020.? No dislocation of the glenohumeral joint.? There is moderate degenerative change at the GH joint.? ? Soft tissues:? No suspicious soft tissue calcifications.? ? IMPRESSION:? Right distal clavicle fracture.? Likely acute. ? Right sided rib fractures.? Favor chronic etiology. ? ? Dictated by: Ruben Rosales M.D. on 12/09/2021 at 14:31 ? ? Approved by: Ruben Rosales M.D. on 12/09/2021 at 14:34 ? CT scan - chest: Radiologist's Impression: Close Chest/Abdomen/Pelvis CT (Signed) Elier Zimmerman - 12/09/21 Chest X-Ray (Signed) Call,Ruben - 12/09/21 Shoulder X-Ray (Signed) Call,Ruben - 12/09/[address] (Signed) Call,Ruben - 12/09/[address] (Signed) Call,Ruben - 12/09/21 Launch?[place] [address] CT Scan Report Signed Patient: Aime Cuba MR#: [id number] : 1940 Acct:[id number] Age/Sex: 81 / M Date of Service: 12/09/21 Loc: ED Accession Number: [id number] ?? Procedure: CT chest abd pel w con Ordering Provider: Jose Luis Cole D.O. PROCEDURE:? CT CHEST ABD PEL W CON ? INDICATIONS:? trauma, fall on thinners, R rib pain ? TECHNIQUE:? After the administration of intravenous contrast, 5 mm thick sections acquired from the lung apices to the symphysis.? 5 mm coronal and sagittal reformats were performed, with additional 7 mm MIP reformats through the lungs.? For radiation dose reduction, the following was used:? automated exposure control, adjustment of mA and/or kV according to patient size.? ? COMPARISON:? [facility], CT, CT ABDOMEN PELVIS W CON, 09/15/2020, 16:37. ? FINDINGS:? Image quality:? Excellent.? ? CHEST:? Lungs and pleura:? Redemonstrated basilar atelectasis/volume loss.? No pleural effusion or pneumothorax. ? Mediastinum:? .? No pericardial effusion.? No mediastinal or hilar adenopathy by size criteria.? Ectasia of the ascending thoracic aorta measuring 4.5 cm, measured at the level of the right pulmonary artery. ? Chest wall:? No axillary or supraclavicular adenopathy by size criteria.? Partially imaged fragmentation of the lateral right clavicle indeterminate for acute or chronic fracture.? Multiple acute right rib fractures including lateral 2nd rib, 4th rib, 5th rib, 6th rib.? Possible underlying osseous lesion at the 4th rib fracture with expansile appearance and some sclerosis.? Acute or subacute left posterior 7th rib fracture. ? ? ABDOMEN:? Solid organs:? Development of innumerable hypodense masses scattered throughout the liver highly suspicious for metastatic disease, a mill representative mass in the right lobe measures 2.8 centimeters (). ? Gallbladder is unremarkable .? Biliary system is non dilated.? Pancreas enhances normally.? Spleen is normal in size and enhancement.? No adrenal nodules.? Kidneys demonstrate normal size and enhancement, without hydronephrosis.? ? Peritoneum and bowel:? No bowel obstruction.? No free air or substantial free fluid. ? Nodes and vessels:? No retroperitoneal or mesenteric adenopathy by size criteria.? Aorta and inferior vena cava are normal in size.? ? PELVIS:? Genitourinary:? Bladder wall thickness is normal.? ? Miscellaneous:? No? adenopathy.? ? Bones:? Multiple remote appearing vertebral body compression fractures.? T4 and T6 fractures are age indeterminate, could be remote Prior right proximal femur/hip pinning.? Multiple sclerotic foci are present about the bony pelvis as before. ? IMPRESSION:? 1. Multiple acute right rib fractures.? Acute or subacute left 7th rib fracture.? No pneumothorax or hemothorax visualized bilaterally. 2. Multiple vertebral body compression fractures are present, most appear remote.? Mild compression deformities of T4 and T6 are age indeterminate, but could be remote. 3. Development of innumerable liver lesions highly suspicious for metastatic disease.? Primary neoplasm uncertain. 4. At the right 4th rib fracture, there is a possible underlying bony lesion raising the possibility of pathologic fracture.? ? ? Dictated by: Elier Zimmerman M.D. on 12/09/2021 at 18:40 ? ? Approved by: Elier Zimmerman M.D. on 12/09/2021 at 19:00 ? MDM Narrative Medical decision making narrative: 1630 - patient attempted to ambulate, but was having increased pain, weakness, and SOB. Initially we had hoped to keep his evaluation simple as he was feeling at his baseline, however, with this we elected to do a more thorough trauma evaluation and IV was placed, labs and more imaging ordered <Denia Ruiz DO - Last Filed: 12/12/21 10:10> Lab Data Labs: Lab Results 12/09/21 12/09/21 12/09/21 Range/Units 16:50 16:50 16:50 WBC 3.6 L (4.5-11.0) X10^3/uL RBC 2.89 L (4.5-5.9) X10^6/uL Hgb 10.4 L (13.5-17.5) g/dL Hct 30.4 L (41-53) % MCV 105.1 H (80-100) fL MCH 35.9 H (26-34) PG MCHC 34.1 (30-36) % RDW 17.3 H (11.6-14.8) % Plt Count 88 L (150-400) X10^3/uL Neut % (Auto) 77.0 H (50-75) % Lymph % (Auto) 6.3 L (25-40) % [place] % (Auto) 14.4 H (3-14) % Eos % (Auto) 0.9 L (2-4) % Baso % (Auto) 1.4 (0-2) % Neut # (Auto) 2700 (1533-0023) /uL Lymph # (Auto) 200 L (7595-2640) /uL [place] # (Auto) 500 (0-900) /uL Eos # (Auto) 0 (0-450) /uL Baso # (Auto) 0 (0-100) /uL PT 16.4 H (10.1-12.7) SECONDS INR 1.4 H (0.9-1.3) Sodium 136 L (137-145) mmol/L Potassium 3.7 (3.4-5.1) mmol/L Chloride 98 (98-107) mmol/L Carbon Dioxide 28 (22-32) mmol/L BUN 21 H (9-20) mg/dL Creatinine 0.65 L (0.66-1.25) mg/dL Estimated GFR > 60 (>60) mL/min BUN/Creatinine Ratio 32.3 H (6-22) Glucose 90 (80-110) mg/dL Calcium 8.5 (8.4-10.2) mg/dL Magnesium (1.6-2.3) mg/dL Total Bilirubin 0.7 (0.2-1.3) mg/dL AST 30 (17-59) IU/L ALT 33 (<50) IU/L Alkaline Phosphatase 112 (38-126) U/L Total Creatine Kinase (55-170) U/L CK-MB (CK-2) CK-MB (CK-2) Rel Index Troponin I (0.01-0.034) ng/mL NT-Pro-B Natriuret Pep (<450) pg/mL Total Protein 6.1 L (6.3-8.2) g/dL Albumin 3.8 (3.5-5.0) g/dL Globulin 2.3 (1.7-4.1) g/dL Albumin/Globulin Ratio 1.7 (1.0-2.8) Urine RBC (0-5/HPF) Urine WBC (0-5/HPF) Urine Bacteria (None) Hyaline Casts (None) Blood Type Antibody Screen 12/09/21 12/09/21 12/09/21 Range/Units 16:50 16:50 16:50 WBC (4.5-11.0) X10^3/uL RBC (4.5-5.9) X10^6/uL Hgb (13.5-17.5) g/dL Hct (41-53) % MCV (80-100) fL MCH (26-34) PG MCHC (30-36) % RDW (11.6-14.8) % Plt Count (150-400) X10^3/uL Neut % (Auto) (50-75) % Lymph % (Auto) (25-40) % [place] % (Auto) (3-14) % Eos % (Auto) (2-4) % Baso % (Auto) (0-2) % Neut # (Auto) (6527-1461) /uL Lymph # (Auto) (5120-5563) /uL [place] # (Auto) (0-900) /uL Eos # (Auto) (0-450) /uL Baso # (Auto) (0-100) /uL PT (10.1-12.7) SECONDS INR (0.9-1.3) Sodium (137-145) mmol/L Potassium (3.4-5.1) mmol/L Chloride (98-107) mmol/L Carbon Dioxide (22-32) mmol/L BUN (9-20) mg/dL Creatinine (0.66-1.25) mg/dL Estimated GFR (>60) mL/min BUN/Creatinine Ratio (6-22) Glucose (80-110) mg/dL Calcium (8.4-10.2) mg/dL Magnesium 1.9 (1.6-2.3) mg/dL Total Bilirubin (0.2-1.3) mg/dL AST (17-59) IU/L ALT (<50) IU/L Alkaline Phosphatase (38-126) U/L Total Creatine Kinase 82 (55-170) U/L CK-MB (CK-2) TNP CK-MB (CK-2) Rel Index TNP Troponin I 0.015 (0.01-0.034) ng/mL NT-Pro-B Natriuret Pep 592 H (<450) pg/mL Total Protein (6.3-8.2) g/dL Albumin (3.5-5.0) g/dL Globulin (1.7-4.1) g/dL Albumin/Globulin Ratio (1.0-2.8) Urine RBC (0-5/HPF) Urine WBC (0-5/HPF) Urine Bacteria (None) Hyaline Casts (None) Blood Type O Positive Antibody Screen Negative 12/09/21 Range/Units 17:06 WBC (4.5-11.0) X10^3/uL RBC (4.5-5.9) X10^6/uL Hgb (13.5-17.5) g/dL Hct (41-53) % MCV (80-100) fL MCH (26-34) PG MCHC (30-36) % RDW (11.6-14.8) % Plt Count (150-400) X10^3/uL Neut % (Auto) (50-75) % Lymph % (Auto) (25-40) % [place] % (Auto) (3-14) % Eos % (Auto) (2-4) % Baso % (Auto) (0-2) % Neut # (Auto) (6474-6043) /uL Lymph # (Auto) (1993-7534) /uL [place] # (Auto) (0-900) /uL Eos # (Auto) (0-450) /uL Baso # (Auto) (0-100) /uL PT (10.1-12.7) SECONDS INR (0.9-1.3) Sodium (137-145) mmol/L Potassium (3.4-5.1) mmol/L Chloride (98-107) mmol/L Carbon Dioxide (22-32) mmol/L BUN (9-20) mg/dL Creatinine (0.66-1.25) mg/dL Estimated GFR (>60) mL/min BUN/Creatinine Ratio (6-22) Glucose (80-110) mg/dL Calcium (8.4-10.2) mg/dL Magnesium (1.6-2.3) mg/dL Total Bilirubin (0.2-1.3) mg/dL AST (17-59) IU/L ALT (<50) IU/L Alkaline Phosphatase (38-126) U/L Total Creatine Kinase (55-170) U/L CK-MB (CK-2) CK-MB (CK-2) Rel Index Troponin I (0.01-0.034) ng/mL NT-Pro-B Natriuret Pep (<450) pg/mL Total Protein (6.3-8.2) g/dL Albumin (3.5-5.0) g/dL Globulin (1.7-4.1) g/dL Albumin/Globulin Ratio (1.0-2.8) Urine RBC None seen (0-5/HPF) Urine WBC None seen (0-5/HPF) Urine Bacteria None seen (None) Hyaline Casts 1-5/lpf (None) Blood Type Antibody Screen Urine Dip Bedside Urine Glucose Negative Bedside Urine Bilirubin - Negative Bedside Urine Ketone + 15 Urine Specific Josephine 1.025 Bedside Urine Occult Blood - Negative Bedside Urine pH 6.0 Bedside Urine Protein +/- 15 Bedside Urine Urobilinogen - Negative Bedside Urine Leukocytes - Negative Esterase Discharge Plan Departure Patient Disposition: Admitted As Inpatient Clinical Impression: Fracture of clavicle, Multiple fractures of rib involving four or more ribs Admit Date/Time: 12/09/21 20:03 Admit Provider: Zulema Lambert <Denia Ruzi, - Last Filed: 12/12/21 10:10> Cosign ED Attending Cosignature Attestation: Patient was not seen by myself in the department. Patient was admitted and under care of hospitalist and transferred upstairs.
--- NOTE | 2021-12-09 15:14 | DI.RAD.S_ITS ---
PROCEDURE: XR CHEST 1V INDICATIONS: fall with right sided rib pain TECHNIQUE: One view of the chest was acquired. COMPARISON: [facility], CT, CT ABDOMEN PELVIS W CON, 09/15/2020, 16:37. [facility], CR, XR SHOULDER RT MIN 2V, 12/09/2021, 14:46. FINDINGS: Surgical changes and devices: None. Lungs and pleura: Minimal streaky opacity at the right lung base is unchanged. No pleural effusions or pneumothorax. Mediastinum: Mediastinal contours appear unchanged. Asymmetric elevation of the left hemidiaphragm. Heart size is normal. Bones and chest wall: No suspicious bony lesions. Scoliosis. Suspect prior vertebroplasty. Right clavicle fracture suspected. Prior right-sided rib fractures. IMPRESSION: No acute cardiopulmonary abnormality. Suspect right clavicle fracture. Prior right-sided rib fractures. Dictated by: Ruben Rosales M.D. on 12/09/2021 at 14:53 Approved by: Ruben Rosales M.D. on 12/09/2021 at 14:58
--- NOTE | 2021-12-09 15:53 | PC.NURSE ---
Addendum entered by Nelly Luna R.N. 12/09/21 19:46: Provider made aware. Original Note: RT called at 1550. Pt has pursued lip breathing, RR of 32, oxygen sat 96%. 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
[2021-12-09] MEDS: BACITRACIN OINT 0.9 GM PCKT 1 APPLIC TOP (16:06)
--- NOTE | 2021-12-09 16:40 | DI.CT.S_ITS ---
PROCEDURE: CT CHEST ABD PEL W CON INDICATIONS: trauma, fall on thinners, R rib pain TECHNIQUE: After the administration of intravenous contrast, 5 mm thick sections acquired from the lung apices to the symphysis. 5 mm coronal and sagittal reformats were performed, with additional 7 mm MIP reformats through the lungs. For radiation dose reduction, the following was used: automated exposure control, adjustment of mA and/or kV according to patient size. COMPARISON: [facility], CT, CT ABDOMEN PELVIS W CON, 09/15/2020, 16:37. FINDINGS: Image quality: Excellent. CHEST: Lungs and pleura: Redemonstrated basilar atelectasis/volume loss. No pleural effusion or pneumothorax. Mediastinum: . No pericardial effusion. No mediastinal or hilar adenopathy by size criteria. Ectasia of the ascending thoracic aorta measuring 4.5 cm, measured at the level of the right pulmonary artery. Chest wall: No axillary or supraclavicular adenopathy by size criteria. Partially imaged fragmentation of the lateral right clavicle indeterminate for acute or chronic fracture. Multiple acute right rib fractures including lateral 2nd rib, 4th rib, 5th rib, 6th rib. Possible underlying osseous lesion at the 4th rib fracture with expansile appearance and some sclerosis. Acute or subacute left posterior 7th rib fracture. ABDOMEN: Solid organs: Development of innumerable hypodense masses scattered throughout the liver highly suspicious for metastatic disease, a novelties sales representative mass in the right lobe measures 2.8 centimeters (2/53). Gallbladder is unremarkable . Biliary system is non dilated. Pancreas enhances normally. Spleen is normal in size and enhancement. No adrenal nodules. Kidneys demonstrate normal size and enhancement, without hydronephrosis. Peritoneum and bowel: No bowel obstruction. No free air or substantial free fluid. Nodes and vessels: No retroperitoneal or mesenteric adenopathy by size criteria. Aorta and inferior vena cava are normal in size. PELVIS: Genitourinary: Bladder wall thickness is normal. Miscellaneous: No adenopathy. Bones: Multiple remote appearing vertebral body compression fractures. T4 and T6 fractures are age indeterminate, could be remote Prior right proximal femur/hip pinning. Multiple sclerotic foci are present about the bony pelvis as before. IMPRESSION: 1. Multiple acute right rib fractures. Acute or subacute left 7th rib fracture. No pneumothorax or hemothorax visualized bilaterally. 2. Multiple vertebral body compression fractures are present, most appear remote. Mild compression deformities of T4 and T6 are age indeterminate, but could be remote. 3. Development of innumerable liver lesions highly suspicious for metastatic disease. Primary neoplasm uncertain. 4. At the right 4th rib fracture, there is a possible underlying bony lesion raising the possibility of pathologic fracture. Dictated by: Elier Zimmerman M.D. on 12/09/2021 at 18:40 Approved by: Elier Zimmerman M.D. on 12/09/2021 at 19:00
[2021-12-09 17:06] LABS: Add Manual Diff / Slide Review NO; Basophils Absolute Auto 0 /uL (0-100); Basophils Percent Auto 1.4 % (0-2); Eosinophils Absolute Auto 0 /uL (0-450); Eosinophils Percent Auto 0.9 % (2-4); Hematocrit 30.4 % (41-53); Hemoglobin 10.4 g/dL (13.5-17.5); Lymphocytes Absolute Auto 200 /uL (1100-4500); Lymphocytes Percent Auto 6.3 % (25-40); Mean Corpuscular HGB Conc 34.1 % (30-36); Mean Corpuscular Hemoglobin 35.9 PG (26-34); Mean Corpuscular Volume 105.1 fL (80-100); Monocytes Absolute Auto 500 /uL (0-900); Monocytes Percent Auto 14.4 % (3-14); Neutrophils Absolute Auto 2700 /uL (1500-7000); Platelet Count 88 X10^3/uL (150-400); Red Blood Cell Count 2.89 X10^6/uL (4.5-5.9); Red Cell Distribution Width 17.3 % (11.6-14.8); White Blood Cell Count 3.6 X10^3/uL (4.5-11.0)
[2021-12-09 17:14] LABS: INR 1.4 (0.9-1.3); Prothrombin Time 16.4 SECONDS (10.1-12.7)
[2021-12-09 17:25] LABS: Bacteria Urine None Seen; Hyaline Casts Urine 1-5/LPF; RBC Urine None Seen (0-5/HPF); WBC Urine None Seen (0-5/HPF)
[2021-12-09 17:35] LABS: Alanine Aminotransferase 33 IU/L (<50); Albumin 3.8 g/dL (3.5-5.0); Albumin Globulin Ratio 1.7 (1.0-2.8); Alkaline Phosphatase 112 U/L (38-126); Aspartate Aminotransferase 30 IU/L (17-59); BUN Creatinine Ratio 32.3 (6-22); Bilirubin Total 0.7 mg/dL (0.2-1.3); Blood Urea Nitrogen 21 mg/dL (9-20); Calcium 8.5 mg/dL (8.4-10.2); Carbon Dioxide 28 mmol/L (22-32); Chloride 98 mmol/L (98-107); Creatine Kinase 82 U/L (55-170); Estimated Glomerular Filt Rate > 60 mL/min (>60); Globulin 2.3 g/dL (1.7-4.1); Glucose 90 mg/dL (80-110); HEMOLYSIS < 15 (0-50); Potassium 3.7 mmol/L (3.4-5.1); Sodium 136 mmol/L (137-145); Total Protein 6.1 g/dL (6.3-8.2)
[2021-12-09 17:47] LABS: NT-proBNP (BNP-Adult 18+) 592 pg/mL (<450); Troponin I 0.015 ng/mL (0.01-0.034)
--- NOTE | 2021-12-09 19:47 | PC.NURSE ---
1600: Pt has RR of 36 and pursued lip breathing. Ox sat of 96% on RA. States that he is almost always SOB. 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 RT called for consult and eval. Provider made aware. Shortly after RT called pt c/o some right sided chest pain at this time. Provider made aware. No oxygen placed at this time per provider.
[2021-12-09 20:33] LABS: Magnesium 1.9 mg/dL (1.6-2.3)
[2021-12-09] MEDS: SODIUM CHLORIDE 0.9% 1,000 ML 60 ML IV (21:11)
[2021-12-09] MEDS: ACETAMINOPHEN 325 MG TABLET 650 MG PO (21:31)
--- NOTE | 2021-12-09 22:55 | P.HP_ITS ---
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 He did strike his head but no loss of consciousness.?Patient denies PIZANO, nausea, vomiting, blurred vision, difficulty with speech, midline neck pain, no changes in his baseline shortness of breath and abdominal pain, Cough, fever, body aches, chills. His significant right shoulder and right lateral rib pain is improved from ED following pain medication. Patient denies any changes in baseline urinary symptoms deniesfrequency dysuria, hematuria, melena, hematemesis. Patient's is at bedside at the time of admit she reports that the patient has been suffering from frequent diarrhea as recent as yesterday secondary to new immunotherapy treatment for cancer, without blood. Patient's is an excellent historian and very informed regarding her 's medical conditions, specialist medications and treatment. Patient is on palliative care and is a DNR DNI. At the time of admit patient is resting comfortably in bed denies any significant pain has mild discomfort to the right chest wall, and the right arm is slinged, he is very pleasant alert and orientated x3 and converses easily. Patient is tachypneic but his reports that he is at baseline. Vitals temp 99.9?, BP 126/72, HR 68 RR 36, O2 saturation 96% on room air. Patient's chronic anemia thrombocytopenia secondary to cancer/treatment WBC 3.6, HGB 10.4, HCT 30.4, MCV 105.1, MCH 35.9, platelets 88. CMP and liver panel predominantly within normal limits, PT 16.4 INR though is stable at 1.4, initial troponin 0.15, BNP 592, Dr. Boyd general surgery was consulted in ED regarding imaging and noted that patient is not likely a surgical candidate. Head CT and negative for acute intracranial process, large area of encephalomalacia at left cerebral hemisphere and/or exvacuole dilation Lt Lanteral ventricle. C-spine is negative for any acute processes noted moderate to severe degenerative changes to cervical vertebra, unchanged from previous imaging, T4 and T6 compression fractures. CT of abdomen pelvis and chest:Multiple acute right rib fractures, acute or subacute left 7th rib fracture.? No pneumothorax or hemothorax visualized bilaterally, multiple vertebral body compression fractures are present, most appear remote, mild compression deformities of T4 and T6 are age indeterminate, but could be remote. innumerable liver lesions, primary neoplasm uncertain,right 4th rib fracture. Patient admitted for mechanical ground level fall resulting in contusion to the right side of his face, with multiple pathologic fractures: right clavicle fracture, right rib fracture, left rib fracture. Patient History Medical History (Updated 12/10/21 @ 00:23 by DUANE Boateng-SUPRIYA) BPH (benign prostatic hyperplasia) Chronic anticoagulation Heart failure with preserved ejection fraction History of DVT (deep vein thrombosis) History of pulmonary embolus (PE) Osteoporosis Overactive bladder Palliative care patient Paralysis, diaphragm Unstable gait Weakness of right side of body Surgical History (Updated 12/10/21 @ 00:10 by DUANE Boateng-SUPRIYA) History of back surgery History of hernia repair Family & Social History Family History Mother Cancer Father Blood disorder Social History: household members [place] Living Arrangements House Tobacco & Substance use: Smoking Status Former smoker alcohol intake never Substance Use Type does not use Meds Home Medications and Allergies Home Medications Medication Instructions Recorded Confirmed Type acyclovir 400 mg tablet 400 mg PO BID 09/12/20 12/09/21 History cyanocobalamin (vitamin B-12) 1,000 mcg IM QMONTH 09/12/20 12/09/21 History 1,000 mcg/mL injection solution acetaminophen 500 mg tablet 1,000 mg PO BID 12/09/21 12/09/21 History cetirizine 10 mg tablet (Zyrtec) 10 mg PO BEDTIME 12/09/21 12/09/21 History cyclophosphamide 50 mg capsule 500 mg PO WEEKLY 12/09/21 12/09/21 History furosemide 20 mg tablet 20 mg PO DAILY 12/09/21 12/09/21 History ipratropium bromide 17 34 mcg inhalation Q4HR PRN 12/09/21 12/09/21 History mcg/actuation HFA aerosol inhaler Shortness Of Breath Or Wheezing (Atrovent HFA) lenalidomide 15 mg capsule 15 mg PO DAILY 12/09/21 12/09/21 History (Revlimid) metoprolol succinate 25 mg 25 mg PO DAILY 12/09/21 12/09/21 History tablet,extended release 24 hr mirabegron 25 mg tablet,extended 25 mg PO DAILY 12/09/21 12/09/21 History release 24 hr (Myrbetriq) morphine 30 mg tablet,extended 30 mg PO QAM 12/09/21 12/09/21 History release morphine 30 mg tablet,extended 60 mg PO BEDTIME 12/09/21 12/09/21 History release potassium chloride 10 mEq 20 meq PO DAILY 12/09/21 12/09/21 History tablet,extended release(part/cryst) rivaroxaban 20 mg tablet (Xarelto) 20 mg PO BEDTIME 12/09/21 12/09/21 History sennosides 8.6 mg tablet (senna) 25.8 mg PO BID 12/09/21 12/09/21 History tamsulosin 0.4 mg capsule 0.4 mg PO DAILY 12/09/21 12/09/21 History Allergies Allergy/AdvReac Type Severity Reaction Status Date / Time No Known Drug Allergies Allergy Verified 09/12/20 16:09 Review of Systems Review of Systems Narrative: All 12 point systems reviewed with the patient and are negative except otherwise documented. Exam Vital Signs (past 8 hours): - 12/09/21 15:44 12/09/21 16:00 12/09/21 16:01 Temperature Pulse Rate 67 66 Respiratory Rate 36 H Blood Pressure 124/60 Pulse Oximetry 91 91 Oxygen Delivery Method Oxygen Flow Rate 12/09/21 16:01 12/09/21 16:30 12/09/21 16:56 Temperature Pulse Rate 63 63 63 Respiratory Rate 32 H 22 Blood Pressure Pulse Oximetry 97 99 Oxygen Delivery Method Oxygen Flow Rate 12/09/21 16:56 12/09/21 17:00 12/09/21 17:00 Temperature Pulse Rate 63 Respiratory Rate 20 Blood Pressure 115/60 111/65 Pulse Oximetry 100 Oxygen Delivery Method Oxygen Flow Rate 12/09/21 17:30 12/09/21 17:30 12/09/21 16:00 Temperature Pulse Rate 65 Respiratory Rate 28 H Blood Pressure 130/63 Pulse Oximetry 99 Oxygen Delivery Method Room Air Oxygen Flow Rate 12/09/21 19:37 12/09/21 19:38 12/09/21 19:38 Temperature Pulse Rate 73 81 Respiratory Rate 47 H 42 H Blood Pressure 133/76 Pulse Oximetry 98 97 Oxygen Delivery Method Oxygen Flow Rate 12/09/21 20:00 12/09/21 20:00 12/09/21 20:30 Temperature Pulse Rate 74 Respiratory Rate 36 H Blood Pressure 130/70 125/71 Pulse Oximetry 98 Oxygen Delivery Method Oxygen Flow Rate 12/09/21 20:30 12/09/21 20:55 Temperature 99.9 F H Pulse Rate 69 68 Respiratory Rate 39 H 36 H Blood Pressure 126/72 Pulse Oximetry 98 96 Oxygen Delivery Method Oxygen Flow Rate 0 Oxygen Delivery Method Room Air Oxygen Flow Rate 0 Narrative Exam Narrative: General: Patient is a delightful, thin, frail, chronically ill-appearing male in no distress at this time, his lisa is at the bedside. Patient ambulates with shuffling gait favors right side due to weakness, uses a cane. HEENT: Normocephalic, extraocular muscles intact, wearing glasses, oral pharynx is clear and mucous membranes are moist. Neck is supple and symmetric, trachea is midline. 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 Lungs: Auscultation of all lung calderon are clear without adventitious sounds, wheezes, rhonchi, or rales., shallow breathing, poor air exchange, chest expansion unequal due to right diaphragm paralysis(chronic), decreased in bases, right over left. Cardio: Bradycardic regular rate and rhythm . Abdomen: Soft nontender, negative for organomegaly, or masses. Bowel sounds are hypoactivepresent in all 4 quadrants without guarding or rebound, no CVA tenderness. Musculoskeletal: Muscle strength and tone are decreased, unequal, greater wasting/weakness to right side, right arm is slung, intact radial and pedal pulses are normal. Chronic bilateral ankle and foot edema greater on left over right, noted erythematous discoloration and warmth to left foot (chronic), no open wounds noted, bilateral feet tender to palpation. Skin: Superficial abrasion to right cheek, overall skin dry and intact, no open wounds or infections noted, skin is thin frail, signs of obvious frequent falls. Neuro: Alert and orientated x3, sensation to touch intact, no gross deficits noted of cranial nerves. Psych: Patient is pleasant, chronically ill-appearing, appropriate affect, mental status attitude thought context and judgment are appropriate for age. Objective Labs Result Diagrams: 12/09/21 16:50 12/09/21 16:50 Labs: Laboratory Results - last 24 hr 12/09/21 12/09/21 12/09/21 16:50 16:50 16:50 WBC 3.6 L RBC 2.89 L Hgb 10.4 L Hct 30.4 L MCV 105.1 H MCH 35.9 H MCHC 34.1 RDW 17.3 H Plt Count 88 L Neut % (Auto) 77.0 H Lymph % (Auto) 6.3 L Reagan % (Auto) 14.4 H Eos % (Auto) 0.9 L Baso % (Auto) 1.4 Neut # (Auto) 2700 Lymph # (Auto) 200 L Reagan # (Auto) 500 Eos # (Auto) 0 Baso # (Auto) 0 PT 16.4 H INR 1.4 H Sodium 136 L Potassium 3.7 Chloride 98 Carbon Dioxide 28 BUN 21 H Creatinine 0.65 L Estimated GFR > 60 BUN/Creatinine Ratio 32.3 H Glucose 90 Calcium 8.5 Magnesium Total Bilirubin 0.7 AST 30 ALT 33 Alkaline Phosphatase 112 Total Creatine Kinase CK-MB (CK-2) CK-MB (CK-2) Rel Index Troponin I NT-Pro-B Natriuret Pep Total Protein 6.1 L Albumin 3.8 Globulin 2.3 Albumin/Globulin Ratio 1.7 Urine RBC Urine WBC Urine Bacteria Hyaline Casts Blood Type Antibody Screen 12/09/21 12/09/21 12/09/21 16:50 16:50 16:50 WBC RBC Hgb Hct MCV MCH MCHC RDW Plt Count Neut % (Auto) Lymph % (Auto) Reagan % (Auto) Eos % (Auto) Baso % (Auto) Neut # (Auto) Lymph # (Auto) Reagan # (Auto) Eos # (Auto) Baso # (Auto) PT INR Sodium Potassium Chloride Carbon Dioxide BUN Creatinine Estimated GFR BUN/Creatinine Ratio Glucose Calcium Magnesium 1.9 Total Bilirubin AST ALT Alkaline Phosphatase Total Creatine Kinase 82 CK-MB (CK-2) TNP CK-MB (CK-2) Rel Index TNP Troponin I 0.015 NT-Pro-B Natriuret Pep 592 H Total Protein Albumin Globulin Albumin/Globulin Ratio Urine RBC Urine WBC Urine Bacteria Hyaline Casts Blood Type O Positive Antibody Screen Negative 12/09/21 17:06 WBC RBC Hgb Hct MCV MCH MCHC RDW Plt Count Neut % (Auto) Lymph % (Auto) Reagan % (Auto) Eos % (Auto) Baso % (Auto) Neut # (Auto) Lymph # (Auto) Reagan # (Auto) Eos # (Auto) Baso # (Auto) PT INR Sodium Potassium Chloride Carbon Dioxide BUN Creatinine Estimated GFR BUN/Creatinine Ratio Glucose Calcium Magnesium Total Bilirubin AST ALT Alkaline Phosphatase Total Creatine Kinase CK-MB (CK-2) CK-MB (CK-2) Rel Index Troponin I NT-Pro-B Natriuret Pep Total Protein Albumin Globulin Albumin/Globulin Ratio Urine RBC None seen Urine WBC None seen Urine Bacteria None seen Hyaline Casts 1-5/lpf Blood Type Antibody Screen Assessment & Plan Assessment & Plan narrative: Aime Cuba is an 81-year-old male requiring acute care inpatient hospital management, after suffering a mechanical ground level fall resulting in contusion to the right side of his face, with multiple pathologic fractures. The patient is at much higher risk for medical and surgical complications because of his chronic anticoagulant therapy on Xarelto, history of DVT and PE, and currently undergoing immunotherapy treatment for liver cancer, related chronic anemia/thrombocytopenia/leukopenia. His history of chronic right-sided weakness/diaphragmatic paralysis, shuffling/unstable gait, chronic shortness of breath, history of myeloma, current metastatic liver cancer related chronic anemia/thrombocytopenia/leukopenia,HFpEF:53%, hypertension, osteoporosis, increase the difficulty and complexity of medical and surgical interventions and increases the chances of poor outcomes such as morbidity and mortality. The patient's chronic diaphragmatic paralysis/shortness of breath, metastatic liver cancer, chronic anemia/thrombocytopenia ,and HFpEF:53%will impact his oxygenation. Patient is on palliative care and is a DNR DNI. 1. Mechanical ground level fall, acute, resulting in multiple pathological fractures, acute, (right clavicle, right 4th rib, left 7th rib), with contusion to right cheek, acute, on long-term anticoagulation(Xarelto), acute on chronic, present on admission -Exacerbation secondary to patient's chronic right-sided weakness, unstable gait, and history of osteoporosis -alert and orientated x3 and converses easily. -consult for Dr. Walters orthopedics placed -Dr. Boyd consulted reviewing patient's imaging in ED: Advise patient is not a surgical candidate. -monitor & assses bleeding risk, strict fall precautions. -pain and comfort management: Continue patient's morphine, lidocaine patches, Voltaren, ice packs-PRN, assist with splinting for deep breathing and incentive spirometry -condom catheter provided for safety due to patient's hyperactive bladder and impaired mobility. -Head CT and negative for acute intracranial process, large area of enc ephalomalacia at left cerebral hemisphere and/or exvacuole dilation Lt Lanteral ventricle. -C-spine is negative for any acute processes noted moderate to severe degenerative changes to cervical vertebra, unchanged from previous imaging, T4 and T6 compression fractures. -CT of abdomen pelvis and chest:Multiple acute right rib fractures, acute or subacute left 7th rib fracture.? No pneumothorax or hemothorax visualized bilaterally, multiple vertebral body compression fractures are present, most appear remote, mild compression deformities of T4 and T6 are age indeterminate, but could be remote. innumerable liver lesions, primary neoplasm uncertain,right 4th rib fracture. -consults: EYEGLASS ASSEMBLER, for evaluation regarding placement following hospitalization for safety (SNF, rehab, home, home health), PT, OT -respiratory consult: Incentive spirometry-prevention of pneumonia, monitor for pneumothorax -gentle rehydration NS at 60 cc/HR -patient will likely require SNF or rehab placement: Discussed concerns regarding safety returning home with . -Hx of DVT/PE-will Hold Xarelto for 24-48 hours due to significantly high risk a bleed and chronic illness, immunotherapy induced anemia thrombocytopenia-NO VTE prophylaxis. 2. Anemia/ thrombocytopenia/leukopenia, acute on chronic, due to chronic illness ( liver cancer, Hx of myeloma), acute on chronic, present on admission -on admit WBC 3.6, HGB 10.4/HCT 30.4, MCV 105.1, MCH 35.9, PLT 88, PT 16.4, INR 1.4 -11/24/2019: 9.7/28.5, MCV 104.7, MCH 35.7, PLT 86. 08/09/2021: 11.2/33.7, MCV 92.3, MCH 30.6, PLT 161 -Hx of DVT/PE-will Hold Xarelto for 24-48 hours due to significantly high risk a bleed and chronic illness, immunotherapy induced anemia thrombocytopenia-NO VTE prophylaxis. -trend hematology labs -monitor for bleeding -Have skye Adler request records Cancer Care (manages) -palliative care patient-continue morphine -continue Cyclophosphamide, Lenalidomide-patient take according to personal regimen as verified by -patient has been having significant diarrhea due to immunotherapy drug, as recent as yesterday per -will hold senna used to treat constipation caused from morphine. Monitor For Hematochezia-consider Cdiff if concern. 3.Right-sided weakness/diaphragmatic paralysis, shuffling/unstable gait, tachypnea, shortness of breath (Chronic), from , likely secondary to cyst of the brain, present on admission -respiratory consult: Incentive spirometry-prevention of pneumonia, monitor for pneumothorax -PT/OT -continue Atrovent 4. Heart failure with preserved ejection fraction 53%, chronic, present on ad mission -continue metoprolol, Lasix -BNP: 592 5. HSV 2, chronic, present on admission, exacerbated by immunotherapy -continue acyclovir 6. BPH, with reported overactive bladder, chronic, present -I have no records to consult unclear why patient is taking medication for overactive bladder and Flomax for BPH? -will hold Myrbetriq-Risk of urinary retention/UTI complication -Continue Flomax -Sindy Cath- due to fall risk/safety/Immobility from multiple fx's and overactive bladder -Bladder scan PRN for retention Code status:DNR/DNI Surrogate decision maker: Akosua Cuba- COVID PCR:Negative DVT/VTE prophylaxis:Holding Medication (bleeding risk), SCD's only Disposition: Patient admitted for a multiple fractures following mechanical fall, to monitor for bleeding and other complications secondary to chronic illnesses (liver cancer), and evaluation for post hospital placement for recovery, expected length of stay greater than 2 midnights. I have utilized all available immediate resources to obtain, update, or review the patient's current medications. I confirmed that the patient's advanced care plan is present, Code status is documented and/or surrogate decision maker is listed in the patient's medical record. Time Spent With Patient Critical Care time: I spent a total of [] minutes of critical care time on this patient's care today; this time is exclusive of procedural time.
[2021-12-09 23:17] LABS: COVID19 -Nasal RAPID Negative (Negative)
[2021-12-10] VITALS (7 sets, daily range): BP systolic 110–137; BP diastolic 63–73; PULSE 66–75; RESP 16–22; TEMP 36.2–37.7; O2SAT 93–96
[2021-12-10] MEDS: OXYCODONE IR 10 MG TABLET PO ×5 (01:01→16:12)
[2021-12-10] MEDS: LIDOCAINE PATCH 1 EACH ADH..PATCH TOP (01:02)
--- NOTE | 2021-12-10 05:31 | PC.NURSE ---
Pt c/o right shoulder and bilat rib cage pain, medicated throughout shift. Pt states he has high pain tolerance. Pt oriented to room and call light.
[2021-12-10 05:36] LABS: Add Manual Diff / Slide Review NO; Basophils Absolute Auto 0 /uL (0-100); Basophils Percent Auto 0.5 % (0-2); Eosinophils Absolute Auto 0 /uL (0-450); Eosinophils Percent Auto 0.9 % (2-4); Hematocrit 28.6 % (41-53); Hemoglobin 9.6 g/dL (13.5-17.5); Lymphocytes Absolute Auto 300 /uL (1100-4500); Lymphocytes Percent Auto 11.9 % (25-40); Mean Corpuscular HGB Conc 33.6 % (30-36); Mean Corpuscular Hemoglobin 35.5 PG (26-34); Mean Corpuscular Volume 105.8 fL (80-100); Monocytes Absolute Auto 600 /uL (0-900); Monocytes Percent Auto 21.9 % (3-14); Neutrophils Absolute Auto 1800 /uL (1500-7000); Neutrophils Percent Auto 64.8 % (50-75); Platelet Count 69 X10^3/uL (150-400); Red Cell Distribution Width 16.7 % (11.6-14.8); White Blood Cell Count 2.8 X10^3/uL (4.5-11.0)
[2021-12-10 05:43] LABS: INR 1.3 (0.9-1.3); Prothrombin Time 14.4 SECONDS (10.1-12.7)
[2021-12-10 05:47] LABS: BUN Creatinine Ratio 33.3 (6-22); Blood Urea Nitrogen 19 mg/dL (9-20); Carbon Dioxide 26 mmol/L (22-32); Chloride 101 mmol/L (98-107); Estimated Glomerular Filt Rate > 60 mL/min (>60); Glucose 79 mg/dL (80-110); HEMOLYSIS < 15 (0-50); Potassium 3.5 mmol/L (3.4-5.1); Sodium 135 mmol/L (137-145)
[2021-12-10] MEDS: MORPHINE ER 30 MG TABLET PO (08:22)
[2021-12-10] MEDS: FUROSEMIDE 20 MG TABLET PO (08:23)
[2021-12-10] MEDS: TAMSULOSIN 0.4 MG CAPSULE PO (08:23)
[2021-12-10] MEDS: ACYCLOVIR 400 MG TABLET PO (08:23)
[2021-12-10] MEDS: POTASSIUM CHLORIDE 20 MEQ TAB PO (08:23)
[2021-12-10] MEDS: METOPROLOL ER 25 MG TABLET PO (08:23)
--- NOTE | 2021-12-10 10:36 | CM.DANOTE ---
Addendum entered by Ernestina Vivas R.N. 12/10/21 15:25: Patient is to be going home today, is in the room. She has already spoken to therapy about getting bars in patient's shower. Gave her the [facility] brochure. Called Chava at [facility] and left him a message that patient is discharging. Although he has access to [employer], faxed copy of face to face and orders, and H&P. Added bath aide on face to face, and in the message to Chava, asked if they have one available, otherwise, O.T. may be able to advise. Original orders state RN, P.T, and O.T, added bath aide on face to face. Original Note: DCP: Case received, EMR reviewed. Spouse, Akosua, was also at bedside. Introduced self and role. Was able to obtain information regarding patient's baseline activity level prior to hospitalization. DCP assessment completed with information currently available. Patient is an 81 year old male who admitted yesterday evening to the care of the hospitalist team. PCP: Dr. Kinney. Payer: confirmed: Medicare A/[facility]. Patient came to the hospital via private vehicle secondary to complaints of discomfort secondary to having a mechanical fall that occurred when he tripped down a stair landing on his right side. Patient has history of chronic right-sided weakness, history of myeloma, metastatic liver cancer, in which he is receiving immunotherapy, palliative. Patient holds current diagnosis of multiple pathological fractures, acute, right clavicle, right 4th rib, and left 7th rib. He is not surgical candidate, but will have consult. Met with patient and spouse. Confirmed that they both reside in [facility]. He uses a cane for ambulation, does not drive. Mentioned home health, spouse likes the idea of home health. Let her know that [facility] is the current agency that serves the [place]. Let her know that this DC Inside Sales Professional will initiate. Patient would benefit with nursing for pain management, P.T, O.T. Called Chava at [facility], he has access to [employer], and will review. P: DCP to continue to follow. Patient will be working with P.T. again today, and if patient discharges, will update Chava at [facility]. Will complete face to face. Is also being sent to EHR to see if he makes inpatient status. Ernestina Vivas RN/Housekeeping Attendant Discharge Planning/Care Management CM Discharge Assessment Start: 12/10/21 10:31 Freq: Status: Active Protocol: Document 12/10/21 10:31 (Rec: 12/10/21 10:36 [id number]) Discharge Planning Assessment Assigned Chief Ii Dispatcher Ernestina Vivas RN/Housekeeping Attendant Advance Directives? Yes Advance Directives on File No History Provided By Patient,Significant Other, Medical Record Prior Living Arrangements House Household Members spouse Type of transporation used prior to Relies on Others admit Independent with ADL's Yes Is patient alert and oriented? Yes Needs Assistance With Bathing,Meal Prep,Home Chores / Shopping Caregiver for Another No DME Already Rented / Owned Cane Patient/Family Preference Home with Home Health Barriers to Discharge No Comment Spouse is very supportive. Discharge Plan Home Transportation Arrangement Spouse Referrals Initiated Home Health Additional Comment Called Chava at [facility], regarding refferal, they are the only home health agency that goes to [place]. Medicare Choice List Provided No SNF/HH Preference [facility] is the only home health agency that serves the [facility] . Has Agency SNF been contacted Yes Whiteboard Updated in Patient Room with Yes name and ext. # of Chief Ii Dispatcher Review Status In Process Next Review Type Continued Stay Review
--- NOTE | 2021-12-10 10:45 | PT.IIE ---
Current Diagnoses Stress fracture, right shoulder, initial encounter for fracture (12/09/21) Surgical History (Last Updated 12/10/21 @ 00:10 by FREEDOM Boateng) History of back surgery History of hernia repair Medical History (Last Updated 12/10/21 @ 00:23 by FREEDOM Boateng) BPH (benign prostatic hyperplasia) Chronic anticoagulation Heart failure with preserved ejection fraction History of DVT (deep vein thrombosis) History of pulmonary embolus (PE) Osteoporosis Overactive bladder Palliative care patient Paralysis, diaphragm Unstable gait Weakness of right side of body Physical Therapy Inpatient Evaluation/Re-Eval M1 PT/OT-IP Prior Functional Status Start: 12/10/21 08:19 Freq: NEEDED Status: Active Protocol: Document 12/10/21 10:45 AW (Rec: 12/10/21 11:10 AW [email or web address]) Medical Review Prior Functional Status Medical History Reviewed Yes Communication WNL. Pt is an effective verbal communicator. Speech is somewhat affected by tachypnea which is pt's baseline due to hemiparetic diaphragm. Mobility and Gait Pt ambulates household distances with SPC modified independent. He has been using the cane since June due to back pain. He has been casually considering a walker but does not have one yet. Activities of Daily Living and IADL's Pt needs assist to don compression socks (knee-high) but can otherwise dress himself. He typically is able to shower with SBA. He is independent with toileting but admits to regular urge incontinence. His does all driving. 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 He has history of myeloma, HFpEF, and liver cancer with metastases. He has osteoporosis. Due to immunotherapy, he has chronic anemia and thrombocytopenia. Current BMI is <18. Social History Household Members spouse Living Arrangements House Number of Floors (Floors) 3 or More Floors Number of Stairs To Enter/Railing? 4 KENNY with L rail ascending. Bedroom and usual bathroom are upstairs but pt states he can stay on the charge entry if needed. Home Environment Standard Height Toilet,Walk in Shower,Tub/Shower Home Equipment Straight Cane Employment Status Retired Additional Social History Comment Aime lives on [place] with his spouse, Rivka. Spouse provides all assist and there are no supportive services in the home at this time. Pt has been sleeping on a couch as it is difficult for him to breathe lying flat. His usual bathroom on second level has grab bars in the walk in shower. If pt stays on main level, he will need to use a tub/shower with no grab bars. Spouse states she can get grab bars installed. M2 PT-IP Current Condition Start: 12/10/21 08:19 Freq: NEEDED Status: Active Protocol: Document 12/10/21 10:45 AW (Rec: 12/10/21 12:45 AW [email or web address]) Physical Therapy Current Condition Current Condition Evaluation Date 12/10/21 Treatment Diagnosis fall, rib fx, R clavicle fx, R sided weakness, impaired mobility and gait Onset Date 12/09/21 M3 PT-IP Subjective Start: 12/10/21 08:19 Freq: NEEDED Status: Active Protocol: Document 12/10/21 10:45 AW (Rec: 12/10/21 12:45 AW [email or web address]) Subjective Physical Therapy Visit Type Type Initial Evaluation Visit Start Time 09:46 Visit Stop Time 10:45 Total Visit Minutes 59 Notes Pt's spouse was present throughout and was able to corroborate and add to pt's subjective history. Physical Therapy Visit Comments Patient Comments Pt reports both shoulders hurt . Therapy Pain Assessment Pain When Pain Assessed At Rest Pain Present Pain Present Pain Reported Location coccyx Intensity 3 Scale Used Numeric (0 - 10) right shoulder Scale Used not quantified M4 PT-IP Mobility and Gait Start: 12/10/21 08:19 Freq: NEEDED Status: Active Protocol: Document 12/10/21 10:45 AW (Rec: 12/10/21 12:45 AW [email or web address]) PT-Transfer Assessment Sit to and From Stand Sit to and from Stand Minimal Assistance,1 Person Assistance,Use of Upper Extremities Equipment Transfer Assistive Device Gait Belt,Straight Cane Orthotic/Prosthetic Devices or Brace: Yes Transfers Transfer Destination Chair,Wheelchair Transfer Technique amulated with SPC Transfer Ability Level of Assist Minimal Assistance,Use of Upper Extremities Comments Mobility Comments Pt was sitting up in the chair as PT arrived. Sling was already donned appropriately on right arm. Pt agreed to mobilize and needed min A to stand. With SPC, he was able to walk to the toilet min A where he stood to void. He was unsteady and leaned heavily toward his left in stance and in gait. He walked around the room ~30 feet before returning to the chair, needing min A to control descent. He stood again min A and ambulated toward the door with SPC min A . He sat on the wheelchair and was escorted to the stairs. He stood and walked toward the stairs. Using left rail, he ascended min A facing forward. To descend, he faced the rail and held on with LUE, descending sideways. Min A for all stair management. Pt returned to the w/c. Back at the room, he stood and transferred back to the chair min A. Gait Assessment Gait Gait Assistance Required: Minimum Assistance,1 Person Assist Distance (Feet) 30 Able to Maintain Weight Bearing Status Yes During Gait Assistive Devices Assistive Device Gait Belt,Straight Cane Orthotic/Prosthetic Devices or Brace: Yes Gait Deviations General Gait Pattern Antalgic,Ataxic,Decreased Stride Length,Decreased Feet Clearance,Flexed Trunk,Lateral Trunk Lean,Narrow Based Gait Factors Limiting Gait Function Factors Limiting Gait Function Decreased Sensation,Decreased Strength,Limited Range of Motion,Pain,Poor Balance,Poor Safety Awareness,Respiratory Distress Comments Gait Comments Pt is severely flexed in his posture with excessively forward and flexed head. His left A/C joint is significantly elevated and humeral head appears to ride high. He walks with flexed knees and narrow base of support but not scissoring. Stair Climbing Assessment Evaluation Level of Assist On Stairs Minimal Assistance,1 Person Assistance Devices Stair Climbing Assistive Devices Left Railing Technique/Endurance Stair Climbing Direction Ascend and Descend Number of Steps Climbed 3 Query Text: Stair Climbing Set # Repetitions (reps) 1 Comments Stair Climbing Comments See mobility comments for details. PT-Balance Assessment Sitting Balance and Reactions Static Sitting Balance Ability Good Dynamic Sitting Balance Ability Fair Standing Balance and Reactions Static Standing Balance Ability Fair Dynamic Standing Balance Ability Poor Device Used SPC M5 PT-IP Objective Assessments Start: 12/10/21 08:19 Freq: NEEDED Status: Active Protocol: Document 12/10/21 10:45 AW (Rec: 12/10/21 12:45 AW [email or web address]) Orientation Orientation/Cognition Level of Alertness Alert Orientation Name,Day of Week,Place, Situation Safety Awareness Understands Safety Issues Memory Description No Deficits Noted Gross Range of Motion Upper Extremity ROM Assessment Right Impaired Lower Extremity ROM Assessment Right Impaired Strength Upper Extremity Strength Assessment Right Impaired Lower Extremity Strength Hip B 4/5 Knee R 3/5; L 4/5 Ankle R 3-/5; L 4/5 M6 PT-IP Treatment Start: 12/10/21 08:19 Freq: NEEDED Status: Active Protocol: Document 12/10/21 10:45 AW (Rec: 12/10/21 12:45 AW [email or web address]) Physical Therapy Treatment Education Education Provided Safety M7 PT-IP Assessment and Plan Start: 12/10/21 08:19 Freq: NEEDED Status: Active Protocol: Document 12/10/21 10:45 AW (Rec: 12/10/21 12:45 AW [email or web address]) PT Summary Assessment and Plan Potential Rehabilitation Potential Good Status of Condition at Evaluation Evolving Summary Impairments Pain,ROM,Strength,Balance, Sensation,Bed Mobility, Transfers,Gait Assessment Summary Aime is an 81 yo man with complicated medical history including 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 He is admitted after a fall with multiple rib fractures and right clavicle fracture. He typically ambulates household distances with SPC modifiied independent . On assessment today, he needed min assist for transfers and gait with SPC. He has his spouse at home to assist and will be safe to discharge home once medically stable. Home health PT is indicated to improve pt's strength and mobility as well as to improve alignment and strength of left shoulder complex on which pt is heavily reliant for mobility. Goals Bed Mobility Goal Standby Assistance Transfer Goal Standby Assistance,Cane Gait Goal Standby Assistance,Cane Gait Distance 100 Other Goals - up/down 4 steps with unilateral rail CGA Days to Meet Goals 5 Frequency of Treatment Frequency Of Treatment Once a Day Treatment Plan Physical Therapy Treatment Plan Bed Mobility Training,Transfer Training,Gait Training, Therapeutic Exercise,Balance Retraining,Discharge Planning, Hot or Cold Pack,Neuromuscular Re-ed Precautions Shoulder Precautions Sling Other Precautions pressure injury to coccyx Weight Bearing Status Allowed Weight Bearing Amount (enter % NWB RUE or #) (%) Recommendations To Nursing Amount of Assist Needed 1 Person Assist Discharge Recommendations PT Discharge Recommendations Home with Assistance,Home Health Transportation Needs at Discharge Private Vehicle
--- NOTE | 2021-12-10 10:45 | DIET.CONS ---
Addendum entered by Luli Verde 12/10/21 12:05: Pt requests ONS [facility] [employer], will send tid per pt request. Original Note: Dietary Consultation Note Admission Date: 12/09/2021 20:03 Assessment: 81y M admitted for mechanical ground level fall resulting in multiple pathological fractures screened by RD for MNA 5 (malnourished). Pt with history multiple myeloma currently on palliative immunotherapy for metastatic liver cancer. Pt with chronic anemia, HTN, and osteoporosis now with fx to right clavicle, right 4th rib, left 7th rib putting pt at high risk of poor PO intake due to pain and work with breathing. Pt described by hospitalist as thin, frail and ill appearing. Ht: 172.72 cm Wt: 53.07 kg BMI: 17.8 (severe for age) UBW: 63kg <1y ago Last BM: 12/08/21 (12/09/21 20:59) MNA: 5 Nilson Score: 18 Diet: 12/09/21 Breakfast Heart Healthy Diet Diet Modifications: Nutrition Percent Meal Consumed 100% 12/10/21 09:34 Labs: RBC 2.70 X10^6/uL (4.5-5.9) L 12/10/21 05:12 Hgb 9.6 g/dL (13.5-17.5) L 12/10/21 05:12 Hct 28.6 % (41-53) L 12/10/21 05:12 Creatinine 0.57 mg/dL (0.66-1.25) L 12/10/21 05:12 NT-Pro-B Natriuret Pep 592 pg/mL (<450) H 12/09/21 16:50 Nutrition Diagnosis: Acute on Chronic Severe Protein Calorie Malnutrition r/t inadequate oral intake secondary to cancer catabolism aeb BMI 17.8 (severe for age), metastatic liver cancer and multiple myeloma, pt with chronic anemia (hgb 9.6), osteoporosis admitted after GLF resulting in multiple pathological fractures. -The patient is at much higher risk for medical and surgical complications because of his malnutrition. This increases the difficulty and complexity of medical and surgical interventions and increases the chances of poor outcomes such as morbidity and mortality. Interventions: 1. Initiating high protein/high calorie diet to meet pts nutritional needs. 2. If POs fall below 75% will initiate high PRO/high kcal ONS. EER: 1600-1850kcals (30-35kcal/kg per PCM), 68-80g PRO (1.3-1.5g/kg per PCM) Monitoring/Evaluations: POs Electronically Signed by: Luli Verde 12/10/21 10:45 Clinical Dietitian [address] [address]
[2021-12-10] MEDS: ACETAMINOPHEN 325 MG TABLET 650 MG PO (11:54)
--- NOTE | 2021-12-10 12:25 | OT.IP.EVAL ---
Current Diagnoses Stress fracture, right shoulder, initial encounter for fracture (12/09/21) Past Medical History (Last Updated 12/10/21 @ 00:23 by FREEDOM Boateng) BPH (benign prostatic hyperplasia) Chronic anticoagulation Heart failure with preserved ejection fraction History of DVT (deep vein thrombosis) History of pulmonary embolus (PE) Osteoporosis Overactive bladder Palliative care patient Paralysis, diaphragm Unstable gait Weakness of right side of body Surgical History (Last Updated 12/10/21 @ 00:10 by FREEDOM Boateng) History of back surgery History of hernia repair Occupational Therapy Inpatient Evaluation/Re-Eval M1 PT/OT-IP Prior Functional Status Start: 12/10/21 08:19 Freq: NEEDED Status: Active Protocol: Document 12/10/21 13:52 CGR (Rec: 12/10/21 14:15 CGR [id number]) Medical Review Prior Functional Status Medical History Reviewed Yes Communication WNL. Pt is an effective verbal communicator. Speech is somewhat affected by tachypnea which is pt's baseline due to hemiparetic diaphragm. Mobility and Gait Pt ambulates household distances with SPC modified independent. He has been using the cane since June due to back pain. He has been casually considering a walker but does not have one yet. Activities of Daily Living and IADL's Pt needs assist to don compression socks (knee-high) but can otherwise dress himself. He typically is able to shower with SBA. He is independent with toileting but admits to regular urge incontinence. His does all driving. 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 He has history of myeloma, HFpEF, and liver cancer with metastases. He has osteoporosis. Due to immunotherapy, he has chronic anemia and thrombocytopenia. Current BMI is <18. Social History Household Members spouse Living Arrangements House Number of Floors (Floors) 3 or More Floors Number of Stairs To Enter/Railing? 4 KENNY with L rail ascending. Bedroom and usual bathroom are upstairs but pt states he can stay on the entry level accountant if needed. Home Environment Standard Height Toilet,Walk in Shower,Tub/Shower Home Equipment Straight Cane Employment Status Retired Additional Social History Comment Aime lives on [place] with his spouse, Rivka. Spouse provides all assist and there are no supportive services in the home at this time. Pt has been sleeping on a couch as it is difficult for him to breathe lying flat. His usual bathroom on second level has grab bars in the walk in shower. If pt stays on main level, he will need to use a tub/shower with no grab bars. Spouse states she can get grab bars installed. Discussed need for GB, placement, and type with pt, and daughter who was present for part of session. Also discussed tub transfer bench and tub clamp on grab bar. M2 OT-IP Current Condition Start: 12/10/21 13:51 Freq: Status: Active Protocol: Document 12/10/21 13:52 CGR (Rec: 12/10/21 14:15 CGR [id number]) Occupational Therapy Current Condition Current Condition Evaluation Date 12/10/21 Treatment Diagnosis Fall down stairs with R 4th rib fx, L 7th román fx, and R clavical fx. hx CA Diagnosis Onset Date 12/09/21 M3 OT- IP Subjective and Pain Start: 12/10/21 13:51 Freq: Status: Active Protocol: Document 12/10/21 13:52 CGR (Rec: 12/10/21 14:15 CGR [id number]) OT- Subjective Occupational Therapy Visit Type Type Initial Evaluation Visit Start Time 11:34 Visit Stop Time 12:27 Total Visit Minutes 53 Notes Pt's and daughter present throughout most of session. OT Pain Assessment Pain When Pain Assessed During Mobility Pain Present Pain Present Pain Reported Location coccyx Scale Used fluctuates Management Techniques Distraction,Modification of Treatment,Re-positioning, Timing of Activity with Medications M4 OT- IP ADL's Start: 12/10/21 13:51 Freq: Status: Active Protocol: Document 12/10/21 13:52 CGR (Rec: 12/10/21 14:15 CGR [id number]) OT [id number] Comments OT Self-Feeding Comments not meal time OT ADL-Grooming Comments OT Grooming Comments Pt declined OT ADL-Oral Care Comments Oral Care Comments Pt declined OT ADL-Dressing Comments OT Dressing Comments not tested, pt dressed in sweats when OT entered OT ADL-Toileting General Evaluation Toileting Ability Standby Assistance Comments OT Toileting Comments simulated toileting seated on toielt OT ADL-Bathing Comments OT Bathing Comments not performed M5 OT- IP IADL's Start: 12/10/21 13:51 Freq: Status: Active Protocol: Document 12/10/21 13:52 CGR (Rec: 12/10/21 14:15 CGR [id number]) OT-Instrumental Activities of Daily Living Deficits IADL Deficits Identified No Deficits Home Safety Awareness Awareness of Need for Assistance at Home Good Awareness Ability to Problem Solve Emergency Able to Problem Solve Situations Medication Management Medication Management Caregiver Administers Money Management Money Management Caregiver Provides Assistance Meal Preparation Meal Preparation Caregiver Provides Assist Support Service Tech Support Service Tech Caregiver Provides Assist Driving Driving Comments Pt does not drive. M6 OT- IP Functional Cognition Start: 12/10/21 13:51 Freq: Status: Active Protocol: Document 12/10/21 13:52 CGR (Rec: 12/10/21 14:15 CGR [id number]) Cognitive Factors Limiting Selfcare Function Cognitive Ability Level of Alertness Alert Patient Orientation Name,Age,Birthday,Month,Date, Year,Day of Week,Place, Situation Attention Span Ability Capable of Focused Attention, Capable of Sustained Attention OT- Vision and Hearing OT- Hearing Assessment OT- Hearing Assessment WFL OT- Vision Assessment Visual Acuity Glasses For Reading Visual Attentiveness WFL Occular Pursuits WFL Visual Convergence WFL M7 OT- IP Mobility and Balance Start: 12/10/21 13:51 Freq: Status: Active Protocol: Document 12/10/21 13:52 CGR (Rec: 12/10/21 14:15 CGR [id number]) OT-Transfer Assessment Sit to and From Stand Sit to and from Stand Contact Guard Assistance Transfers Transfer Ability Contact Guard Assistance Technique Transfer Destination Chair,Toilet Transfer Technique Stand Step Pivot Devices Transfer Assistive Devices Gait Belt,Straight Cane Comments Mobility Comments Pt ambulated from the chair to the toielt. Pt states that the non skid socks make it harder for him to walk since his baseline gait pattern has him draging his feet at times. OT- Balance Assessment Sitting Balance and Reactions Static Sitting Balance Ability Fair Dynamic Sitting Balance Ability Fair M8 OT- IP Objective Assessments Start: 12/10/21 13:51 Freq: Status: Active Protocol: Document 12/10/21 13:52 CGR (Rec: 12/10/21 14:15 CGR [id number]) OT Gross Range of Motion Upper Extremity Range of Motion Assessment Right Impaired OT Strength Comments Strength Comments R not tested, L shld 3+/5, arm and hand 4-/5 OT- Coordination Assessment Upper Extremity Finger to Nose Test Right UE Impaired Finger Tapping Test Right UE Impaired Comments Coordination Comments Pt's RUE is impaired with coordination at baseline. OT-Muscle Tone Assessment Muscle Tone WNL Yes OT Sensation Assessment Edema Edema Absent M9 OT- IP Assessment and Plan Start: 12/10/21 13:51 Freq: Status: Active Protocol: Document 12/10/21 13:52 CGR (Rec: 12/10/21 14:15 CGR [id number]) OT Summary Assessment and Plan Potential Rehabilitation Potential Good Analytic Complexity at Evaluation High Summary OT Impairments Pain,Range of Motion,Strength, Balance,Coordination, Functional Mobility,Grooming, Dressing,Toileting,Bathing, Toilet Transfers,Shower Transfers,Activity Tolerance Progress Towards Goals Slow Progress due to Pain,Slow Progress due to Medical Issues,Slow Progress due to Activity Tolerance Assessment Summary Pt presents as a high complexity evaluation s/p admit for fall with R 4th rib fx, L 7th rib fx, and clavicle fx. Pt has deficits to his R arm and hand from a brain injury early in life. Pt currently CGA for mobility around the room and declined much of the ADLs. Pt states his will assist with anything he needs help with and pt's states that pt is very independent and will work on getting back to independent. Pt might benefit from SNF but at this time pt and his would like him to return home. Discussed at length pts down stairs bathroom and how to set it up for his use since he fell trying to go up the stairs to take a shower in the walk in shower. Pt and family agreeable to getting DME for home use. OK for d/c to home from OT stand point. Goals Self-Feeding Goal Independent Grooming Goal Independent Dressing Goal Independent Toileting Goal Independent Bathing Goal Independent Toilet Transfer Goal Independent Shower Transfer Goal Independent Days to Meet Goals 15 Frequency of Treatment Frequency Of Treatment Once a Day Treatment Plan OT Treatment Plan ADL Training,Functional Mobility,Patient/Family Education,Discharge Planning Other Treatment Recommendations and Next shower Treatment Focus Discharge Recommendations OT Discharge Recommendations Home with 24/ Assist Available Home Equipment Needs tub transfer bench, tub clamp grab bar, wall grab bars Transportation Needs at Discharge Private Vehicle
--- NOTE | 2021-12-10 13:43 | P.PN_ITS ---
Subjective Subjective Date Patient Seen: 12/10/21 Time Patient Seen: 08:00 Interval history: He feels weaker than normal today. He denies shortness of breath. He has controlled shoulder and rib pain. Exam Vital Signs (past 8 hours): - 12/10/21 08:23 12/10/21 08:00 12/10/21 08:00 Temperature 98.6 F Pulse Rate 66 66 Respiratory Rate 16 Blood Pressure 116/64 116/64 Pulse Oximetry 95 95 Oxygen Delivery Method Room Air Oxygen Flow Rate 0 12/10/21 12:00 Temperature Pulse Rate Respiratory Rate Blood Pressure Pulse Oximetry 95 Oxygen Delivery Method Room Air Oxygen Flow Rate Oxygen Delivery Method Room Air Oxygen Flow Rate 0 Narrative Exam Narrative: GEN: chronically ill appearing, frail CV: regular rate and rhythm PULM: clear bilaterally EXT: R arm in sling Objective Labs Result Diagrams: 12/10/21 05:12 12/10/21 05:12 Labs: Laboratory Results - last 24 hr 12/09/21 12/09/21 12/09/21 16:50 16:50 16:50 WBC 3.6 L RBC 2.89 L Hgb 10.4 L Hct 30.4 L MCV 105.1 H MCH 35.9 H MCHC 34.1 RDW 17.3 H Plt Count 88 L Neut % (Auto) 77.0 H Lymph % (Auto) 6.3 L [place] % (Auto) 14.4 H Eos % (Auto) 0.9 L Baso % (Auto) 1.4 Neut # (Auto) 2700 Lymph # (Auto) 200 L [place] # (Auto) 500 Eos # (Auto) 0 Baso # (Auto) 0 PT 16.4 H INR 1.4 H Sodium 136 L Potassium 3.7 Chloride 98 Carbon Dioxide 28 BUN 21 H Creatinine 0.65 L Estimated GFR > 60 BUN/Creatinine Ratio 32.3 H Glucose 90 Calcium 8.5 Magnesium Total Bilirubin 0.7 AST 30 ALT 33 Alkaline Phosphatase 112 Total Creatine Kinase CK-MB (CK-2) CK-MB (CK-2) Rel Index Troponin I NT-Pro-B Natriuret Pep Total Protein 6.1 L Albumin 3.8 Globulin 2.3 Albumin/Globulin Ratio 1.7 Urine RBC Urine WBC Urine Bacteria Hyaline Casts SARS-CoV-2 (PCR) Blood Type Antibody Screen 12/09/21 12/09/21 12/09/21 16:50 16:50 16:50 WBC RBC Hgb Hct MCV MCH MCHC RDW Plt Count Neut % (Auto) Lymph % (Auto) [place] % (Auto) Eos % (Auto) Baso % (Auto) Neut # (Auto) Lymph # (Auto) [place] # (Auto) Eos # (Auto) Baso # (Auto) PT INR Sodium Potassium Chloride Carbon Dioxide BUN Creatinine Estimated GFR BUN/Creatinine Ratio Glucose Calcium Magnesium 1.9 Total Bilirubin AST ALT Alkaline Phosphatase Total Creatine Kinase 82 CK-MB (CK-2) TNP CK-MB (CK-2) Rel Index TNP Troponin I 0.015 NT-Pro-B Natriuret Pep 592 H Total Protein Albumin Globulin Albumin/Globulin Ratio Urine RBC Urine WBC Urine Bacteria Hyaline Casts SARS-CoV-2 (PCR) Blood Type O Positive Antibody Screen Negative 12/09/21 12/09/21 12/10/21 17:06 23:00 05:12 WBC 2.8 L RBC 2.70 L Hgb 9.6 L Hct 28.6 L MCV 105.8 H MCH 35.5 H MCHC 33.6 RDW 16.7 H Plt Count 69 L Neut % (Auto) 64.8 Lymph % (Auto) 11.9 L [place] % (Auto) 21.9 H Eos % (Auto) 0.9 L Baso % (Auto) 0.5 Neut # (Auto) 1800 Lymph # (Auto) 300 L [place] # (Auto) 600 Eos # (Auto) 0 Baso # (Auto) 0 PT INR Sodium Potassium Chloride Carbon Dioxide BUN Creatinine Estimated GFR BUN/Creatinine Ratio Glucose Calcium Magnesium Total Bilirubin AST ALT Alkaline Phosphatase Total Creatine Kinase CK-MB (CK-2) CK-MB (CK-2) Rel Index Troponin I NT-Pro-B Natriuret Pep Total Protein Albumin Globulin Albumin/Globulin Ratio Urine RBC None seen Urine WBC None seen Urine Bacteria None seen Hyaline Casts 1-5/lpf SARS-CoV-2 (PCR) Negative Blood Type Antibody Screen 12/10/21 12/10/21 05:12 05:12 WBC RBC Hgb Hct MCV MCH MCHC RDW Plt Count Neut % (Auto) Lymph % (Auto) [place] % (Auto) Eos % (Auto) Baso % (Auto) Neut # (Auto) Lymph # (Auto) [place] # (Auto) Eos # (Auto) Baso # (Auto) PT 14.4 H INR 1.3 Sodium 135 L Potassium 3.5 Chloride 101 Carbon Dioxide 26 BUN 19 Creatinine 0.57 L Estimated GFR > 60 BUN/Creatinine Ratio 33.3 H Glucose 79 L Calcium 8.0 L Magnesium Total Bilirubin AST ALT Alkaline Phosphatase Total Creatine Kinase CK-MB (CK-2) CK-MB (CK-2) Rel Index Troponin I NT-Pro-B Natriuret Pep Total Protein Albumin Globulin Albumin/Globulin Ratio Urine RBC Urine WBC Urine Bacteria Hyaline Casts SARS-CoV-2 (PCR) Blood Type Antibody Screen PFSH Medical History (Updated 12/10/21 @ 00:23 by DUANE Boateng-) BPH (benign prostatic hyperplasia) Chronic anticoagulation Heart failure with preserved ejection fraction History of DVT (deep vein thrombosis) History of pulmonary embolus (PE) Osteoporosis Overactive bladder Palliative care patient Paralysis, diaphragm Unstable gait Weakness of right side of body Surgical History (Updated 12/10/21 @ 00:10 by DUANE Boateng-SUPRIYA) History of back surgery History of hernia repair Family History Mother Cancer Father Blood disorder Social History household members: spouse Smoking Status: Former smoker alcohol intake: never Assessment & Plan Assessment & Plan narrative: Mr. Cuba is an 81M with PMH of DVT/PE< liver cancer, multiple myeloma, anemia, thrombocytopenia, CHF who presents after a fall with multiple rib fractures and right clavicle fracture 1. Mechanical fall with multiple rib fractures and clavicular fracture -R arm placed in sling -incentive spirometer to prevent pneumonia -pain control to prevent splinting with oral morphine, and prn oxycodone, and lidocaine patch -as was trauma, surgery consult in ED rec medical management -PT/OT consult, suspect may need home health 2. Pancytopenia, chronic -suspect secondary to malignancy -continue xarelto -no need for transfusion, trend daily 3. Multiple myeloma, liver cancer -continue cyclophosphamide, revlimid 4. Chronic CHFpEF -continue metoprolol, Lasix 6. BPH, with reported overactive bladder -continue flomax Dispo: suspect patient will be able to discharge home tomorrow if respiratory st atus remains stable and is improved with PT Time Spent With Patient Critical Care time: I spent a total of [] minutes of critical care time on this patient's care today; this time is exclusive of procedural time.
--- NOTE | 2021-12-10 18:28 | PC.NURSE ---
Pt is A&Ox3. He has R shoulder in a sling. VSS, afebrile on RA, at baseline patient is tachypnic. RR at 28 bpm. He denies any distress. He request to sit up in chair majority of the day. He is able to take a couple of steps. At baseline R side weak partially paralyzed from childhood. Pt reports pain well controlled when not moving. Mepilex applied to very small pencil eraser size opening to coccyx. PT reports mild to moderate pain to coccyx, right shoulder and r ribs (where fracture located) He is able to tolerate about 15% of meals with x2 ensure shakes. Condom catheter placed per request for urinary urgency and frequency. MD at bedside clearing patient medically for discharge. Pt/OT clear patient for discharge home with home health. CM assisting with Home Health set up. [facility] He and retrieve medications from pharmacy. They verbalize understanding of medications, activity (encouragment to use IS), diet as well as follow up recommendations. He is escorted via w/chair by nurse to private vehicle with his at 1730 for discharge home this evening with all of his belongings.
--- NOTE | 2021-12-10 18:44 | PM.DS.1 ---
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 He did strike his head but no loss of consciousness.?Patient denies PIZANO, nausea, vomiting, blurred vision, difficulty with speech, midline neck pain, no changes in his baseline shortness of breath and abdominal pain, Cough, fever, body aches, chills. His significant right shoulder and right lateral rib pain is improved from ED following pain medication. Patient denies any changes in baseline urinary symptoms deniesfrequency dysuria, hematuria, melena, hematemesis. Patient's is at bedside at the time of admit she reports that the patient has been suffering from frequent diarrhea as recent as yesterday secondary to new immunotherapy treatment for cancer, without blood. Patient's is an excellent historian and very informed regarding her 's medical conditions, specialist medications and treatment. Patient is on palliative care and is a DNR DNI. At the time of admit patient is resting comfortably in bed denies any significant pain has mild discomfort to the right chest wall, and the right arm is slinged, he is very pleasant alert and orientated x3 and converses easily. Patient is tachypneic but his reports that he is at baseline. Vitals temp 99.9?, BP 126/72, HR 68 RR 36, O2 saturation 96% on room air. Patient's chronic anemia thrombocytopenia secondary to cancer/treatment WBC 3.6, HGB 10.4, HCT 30.4, MCV 105.1, MCH 35.9, platelets 88. CMP and liver panel predominantly within normal limits, PT 16.4 INR though is stable at 1.4, initial troponin 0.15, BNP 592, Dr. Boyd general surgery was consulted in ED regarding imaging and noted that patient is not likely a surgical candidate. Head CT and negative for acute intracranial process, large area of encephalomalacia at left cerebral hemisphere and/or exvacuole dilation Lt Lanteral ventricle. C-spine is negative for any acute processes noted moderate to severe degenerative changes to cervical vertebra, unchanged from previous imaging, T4 and T6 compression fractures. CT of abdomen pelvis and chest:Multiple acute right rib fractures, acute or subacute left 7th rib fracture.? No pneumothorax or hemothorax visualized bilaterally, multiple vertebral body compression fractures are present, most appear remote, mild compression deformities of T4 and T6 are age indeterminate, but could be remote. innumerable liver lesions, primary neoplasm uncertain,right 4th rib fracture. Patient admitted for mechanical ground level fall resulting in contusion to the right side of his face, with multiple pathologic fractures: right clavicle fracture, right rib fracture, left rib fracture. Discharge Providers Provider Date of admission: 12/09/21 20:03 Discharge Date: 12/10/21 Primary care physician: Cecile Kinney MD Consults: 12/09/21 20:05 Consult to Discharge Planning Routine Comment: Consult to Occupational Therapy Evaluate & Treat Comment: Physician Instructions: Evaluate and treat Consult to Physical Therapy Evaluate & Treat Comment: Physician Instructions: Evaluate and Treat 12/09/21 20:09 Consult to Respiratory Therapy Evaluate & Treat Comment: RIB FX Physician Instructions: Evaluate and treat 12/10/21 00:45 Consult to ADULT NURSE PRACTITIONER - Business Banking Relationship Manager Routine Comment: Eval for safety after hospt, rehab/SNF/Home? ADULT NURSE PRACTITIONER Consult needed for:: End of Life/Goal Care Dis 12/10/21 15:08 Consult to Home Health Routine Comment: Reason For Exam: Home Health RN, P.T, O.T. Discharge provider: James Ribeiro MD Summary Hospital Course Discharge Diagnosis: 1. Mechanical fall with multiple rib fractures, clavicle fracture 2. Pancytopenia, chronic 3. Multiple myeloma 4. Liver metastases 5. Chronic CHFpEF 6. BPH Hospital Course: Mr. Cuba was admitted after a fall. He was found to have a right clavicle fracture and multiple rib fractures. Given his malignancy history these were likely pathologic fractures. He had no respiratory compromise in the hospital. Chest xray and ct chest showed no consolidation, pneumothrax, or effusion. He was ordered for pain control and incentive spirometry. Trauma surgery consulted and recommended no treatment. He worked with PT who recommended home health physical therapy. He will be referred to orthopedic surgery for follow up for his clavicle fracture. Exam Vital Signs (past 8 hours): - 12/10/21 12:00 12/10/21 16:00 12/10/21 16:00 Temperature 97.1 F L Pulse Rate 73 Respiratory Rate 19 Blood Pressure 137/73 Pulse Oximetry 95 95 94 Oxygen Delivery Method Room Air Room Air Oxygen Flow Rate 0 Oxygen Delivery Method Room Air Oxygen Flow Rate 0 Narrative Exam Narrative: GEN: chronically ill appearing, frail CV: regular rate and rhythm PULM: clear bilaterally EXT: R arm in sling Objective Labs Result Diagrams: 12/10/21 05:12 12/10/21 05:12 Labs: Laboratory Results - last 24 hr 12/09/21 12/09/21 12/10/21 16:50 23:00 05:12 WBC 2.8 L RBC 2.70 L Hgb 9.6 L Hct 28.6 L MCV 105.8 H MCH 35.5 H MCHC 33.6 RDW 16.7 H Plt Count 69 L Neut % (Auto) 64.8 Lymph % (Auto) 11.9 L [place] % (Auto) 21.9 H Eos % (Auto) 0.9 L Baso % (Auto) 0.5 Neut # (Auto) 1800 Lymph # (Auto) 300 L [place] # (Auto) 600 Eos # (Auto) 0 Baso # (Auto) 0 PT INR Sodium Potassium Chloride Carbon Dioxide BUN Creatinine Estimated GFR BUN/Creatinine Ratio Glucose Calcium Magnesium 1.9 SARS-CoV-2 (PCR) Negative 12/10/21 12/10/21 05:12 05:12 WBC RBC Hgb Hct MCV MCH MCHC RDW Plt Count Neut % (Auto) Lymph % (Auto) [place] % (Auto) Eos % (Auto) Baso % (Auto) Neut # (Auto) Lymph # (Auto) [place] # (Auto) Eos # (Auto) Baso # (Auto) PT 14.4 H INR 1.3 Sodium 135 L Potassium 3.5 Chloride 101 Carbon Dioxide 26 BUN 19 Creatinine 0.57 L Estimated GFR > 60 BUN/Creatinine Ratio 33.3 H Glucose 79 L Calcium 8.0 L Magnesium SARS-CoV-2 (PCR) PFSH Medical History (Updated 12/10/21 @ 00:[address] [facility]) BPH (benign prostatic hyperplasia) Chronic anticoagulation Heart failure with preserved ejection fraction History of DVT (deep vein thrombosis) History of pulmonary embolus (PE) Osteoporosis Overactive bladder Palliative care patient Paralysis, diaphragm Unstable gait Weakness of right side of body Surgical History (Updated 12/10/21 @ 00:10 by DUANE Boateng-) History of back surgery History of hernia repair Family History Mother Cancer Father Blood disorder Social History household members: spouse Smoking Status: Former smoker alcohol intake: never Discharge Plan Discharge Plan Patient Disposition: Home Health Service Provider Discharge Comment: Mr. Cuba came in to the hospital after a fall. He had a clavicle fracture and rib fractures. He was given pain medications and felt better. He worked with PT who recommended home PT. He should follow closely with his primary care doctor in the next few days. Please call orthopedic surgery office at [phone] tomorrow to discuss a follow up for the clavicle fracture. Discharge orders & Medications Prescriptions: New oxycodone 10 mg Tablet 10 mg PO Q3H PRN (Reason: Pain, Severe (5-10)) Qty: 12 0RF Continued lenalidomide [Revlimid] 15 mg capsule 15 mg PO DAILY Label Comments: takes med day 1-21 0f month, off 7 days, then restarts cycle. Last med for this cycle is 12/17/2021 cyclophosphamide 50 mg capsule 500 mg PO WEEKLY Rx Instructions: Takes 500 mg once a week on days 1,8 and 15 of 28 day cycle. Next due which is day 15 of this cycle. cetirizine [Zyrtec] 10 mg Tablet 10 mg PO BEDTIME morphine 30 mg tablet extended release 30 mg PO QAM morphine 30 mg tablet extended release 60 mg PO BEDTIME furosemide 20 mg tablet 20 mg PO DAILY potassium chloride 10 mEq tablet,ER particles/crystals 20 meq PO DAILY Atrovent HFA 17 mcg/actuation HFA aerosol inhaler 34 mcg INHALATION Q4HR PRN (Reason: Shortness Of Breath Or Wheezing) Label Comments: INHALE 2 PUFFS BY MOUTH EVERY 4 HOURS NEEDED FOR SHORTNESS OF BREATH OR WHEEZING Myrbetriq 25 mg tablet extended release 24 hr 25 mg PO DAILY metoprolol succinate 25 mg tablet extended release 24 hr 25 mg PO DAILY acetaminophen 500 mg Tablet 1,000 mg PO BID Xarelto 20 mg tablet 20 mg PO BEDTIME tamsulosin 0.4 mg capsule 0.4 mg PO DAILY sennosides [senna] 8.6 mg Tablet 25.8 mg PO BID acyclovir 400 mg tablet 400 mg PO BID cyanocobalamin (vitamin B-12) 1,000 mcg/mL solution 1,000 mcg IM QMONTH Follow up/Referrals: Cecile Kinney MD [Primary Care Provider] - 1 Week Arlyn Diana MD [Physician] - Visit Report/Discharge Packet Instructions: DI for Trauma Discharge Data Primary Care Provider: Cecile Kinney
== END 2021-12-10 17:30 | disposition home health service (06) ==
LOC: ED 20:01 → AC 12-10 09:38
PROVIDERS: Admitting Provider Nurse Practitioner Family; Emergency Provider Emergency Medicine; Family Provider Family Medicine; PCP Family Medicine; Referring Provider Emergency Medicine; Visit Provider Nurse Practitioner Family
DX: S42.001A Fracture of unspecified part of right clavicle, initial encounter for closed fracture (principal); S22.41XA Multiple fractures of ribs, right side, initial encounter for closed fracture; W01.198A Fall on same level from slipping, tripping and stumbling with subsequent striking against other object, initial encounter; D61.818 Other pancytopenia; C78.7 Secondary malignant neoplasm of liver and intrahepatic bile duct; C90.01 Multiple myeloma in remission; N40.0 Benign prostatic hyperplasia without lower urinary tract symptoms; G81.91 Hemiplegia, unspecified affecting right dominant side; I50.32 Chronic diastolic (congestive) heart failure; Z79.01 Long term (current) use of anticoagulants; Z86.718 Personal history of other venous thrombosis and embolism; Z66 Do not resuscitate; Z20.822 Contact with and (suspected) exposure to COVID-19
CPT/HCPCS: 36415; 70450; 71045; 71260; 72125; 73030; 74177; 80048; 80053; 81003; 81015; 82550; 83735; 83880; 84484; 85025; 85610; 86850; 86900; 86901; 87086; 87635; 93005; 97116; 97162; 97167; 97535; 99285; 99291; 99292; C9803; G0378; Q9967